=== PATIENT | female | born 1935 | race Caucasian/White ===

== ENCOUNTER 2019-12-12 15:54 | Inpatient (IN) | payer OTHER ==
[2019-12-12] MEDS ORDERED: NA CHLORIDE 0.9% 500 ML ONE (17:07)
[2019-12-12] MEDS ORDERED: NA CHLORIDE 0.9% 1,000 ML ONE (17:07)
[2019-12-12 17:29] LABS: Urine Bacteria LOADED /HPF (<20); Urine Culture Reflex Order REFLEXED; Urine RBC <5 /HPF (NONE SEEN)
[2019-12-12 17:46] LABS: Absolute Lymphocytes (CBC) 0.6 K/uL (0.7-4.9); Basophils % 0.9 % (0-1.3); Hematocrit 38.2 % (36.0-45.0); Lymphocytes % 2.6 % (15.3-44.8); MPV 9.5 fL (7.6-11.3); RBC Red Blood Cell Count 4.35 M/uL (3.86-4.86)
[2019-12-12 17:50] LABS: Protime INR 1.16
[2019-12-12] MEDS ORDERED: CEFTRIAXONE/SWI 1gm 1 GM/10 ML SYR ONE (17:57)
--- NOTE | 2019-12-12 17:58 | RAD REPORT ---
EXAM DESCRIPTION: CT - Head C Spine Mpr Wo Con - 12/12/2019 5:47 pm CLINICAL HISTORY: Head and neck injury status post fall. Head and neck pain COMPARISON: None. TECHNIQUE: Computed axial tomography of the head and cervical spine was obtained. Sagittal and coronal reconstruction was performed. All CT scans are performed using dose optimization technique as appropriate and may include automated exposure control or mA/KV adjustment according to patient size. FINDINGS: An intracranial bleed is not seen. The ventricles are normal in caliber. An extra-axial fl uid collection is not noted.Fluid within the visualized sinuses and mastoids is not seen Minimal anterior subluxation C3 on C4. No prevertebral soft tissue swelling. A cervical fracture is n ot visualized. No dislocation is noted. A 11 x 7 millimeter right upper opacity IMPRESSION: No acute intracranial abnormality is seen. A cervical fracture is not visualized. If the patient continues to have symptoms to suggest intracra nial /spinal cord pathology then MRI would be recommended 11 x 7 millimeter right upper opacity probably either chronic or inflammatory. Neoplasm considered le ss likely. Followup CT chest 3 months is recommended to assess stability
[2019-12-12 18:06] LABS: ALT/SGPT 7 U/L (12-78); AST/SGOT 26 U/L (15-37); Albumin 2.4 g/dL (3.4-5.0); Alkaline Phosphatase 130 U/L (45-117); BUN Blood Urea Nitrogen 70 mg/dL (7-18); Bicarbonate 23 mmol/L (21-32); Bilirubin Direct 0.5 mg/dL (0-0.2); Bilirubin Total 0.9 mg/dL (0.2-1.0); Creatine Phosphokinase 146 U/L (26-192); Glucose Level 110 mg/dL (74-106); Potassium 3.5 mmol/L (3.5-5.1); Protein, Total 7.4 g/dL (6.4-8.2); Sodium Level 138 mmol/L (136-145); Troponin (Emerg Dept Use Only) < 0.02 ng/mL (0.0-0.045)
--- NOTE | 2019-12-12 18:10 | RAD REPORT ---
EXAM DESCRIPTION: Nicole Single View12/12/2019 6:02 pm CLINICAL HISTORY: Chest pain COMPARISON: none FINDINGS: The lungs are hyperaerated. The lungs appear clear of acute infiltrate. The heart is normal size IMPRESSION: No acute abnormalities displayed
--- NOTE | 2019-12-12 18:17 | ER ---
Nurse's Notes [facility] Name: Georgiana Ortiz Age: 84 yrs Sex: Female : 1935 Arrival Date: 12/12/2019 Time: 15:57 Bed 16 Private MD: Diagnosis: Acute kidney failure;Urinary tract infection, site not specified;Other sepsis Presentation: 12/11 16:01 Chief complaint: Patient's son or daughter states: Daughter: I picked her up from [address] yesterday. She has Parkinson's and has been falling a lot. Last , she fell backwards and hit her head. I am just concern, she has been fed properly. She has diarrhea, doesn't eat much. Denies fever. Denies cough. Appears drowsy. Oriented x 2, daughter states, "has been this way for a while now. This is her normal but it just has gotten worse sine last ". Denies pain. Coronavirus screen: Client denies travel out of the [place] in the last 14 days. diarrhea, Client presents with at least one sign or symptom that may indicate coronavirus-19. Standard/surgical mask placed on the client. Provider contacted for isolation considerations. The client denies any previous COVID testing. Ebola Screen: Patient negative for fever greater than or equal to 101.5 degrees Fahrenheit, and additional compatible Ebola Virus Disease symptoms Patient denies exposure to infectious person. Patient denies travel to an Ebola-affected area in the 21 days before illness onset. No symptoms or risks identified at this time. Initial Sepsis Screen: Does the patient meet any 2 criteria? Altered Mental Status. HR > 90 bpm. Yes Does the patient have a suspected source of infection? Yes: Other: diarrhea. Risk Assessment: Do you want to hurt yourself or someone else? Patient reports no desire to harm self or others. Onset of symptoms was December 12, 2019. 16:01 Method Of Arrival: Wheelchair ca1 16:01 Acuity: LIBIA 2 ca1 Historical: - Allergies: 16:10 No Known Allergies; ca1 - Home Meds: 16:10 melatonin 3 mg Oral tab [Active]; mirtazapine 15 mg Oral tab 1 tab once daily [Active]; ca1 donepezil 10 mg oral tab 1 tab once daily [Active]; levothyroxine 25 mcg tab 1 tab once daily [Active]; carbidopa-levodopa 25-100 mg Oral tab 1 tab 4 times per day [Active]; - PMHx: 16:10 Parkinsons; Dementia; Alzheimers; Thyroid problem; ca1 - PSHx: 16:10 Hysterectomy; ca1 - Immunization history:: Adult Immunizations unknown. - Social history:: Smoking status: Patient/guardian denies using tobacco. Screenin:37 Abuse screen: Denies threats or abuse. Nutritional screening: No deficits noted. jd3 Tuberculosis screening: No symptoms or risk factors identified. Fall Risk Fall in past 12 months (25 points). IV access (20 points). Ambulatory Aid- None/Bed Rest/Nurse Assist (0 pts). Gait- Weak (10 pts.). Mental Status- Overestimates/Forgets Limitations (15 pts.). Total Sutton Fall Scale indicates High Risk Score (45 or more points). Fall prevention measures have been instituted. Side Rails Up X 2 Placed Close to Nursing Station Frequent Obs/Assessments Occuring Family Present and informed to notify staff if the need to leave the bedside. Assessment: 16:30 General: Appears uncomfortable, Behavior is calm, cooperative. Pain: Denies pain. jd3 Neuro: Level of Consciousness is awake, alert, confused, Oriented to person, Airfield Manager are equal bilaterally. Cardiovascular: Denies chest pain, Capillary refill < 3 seconds Patient's skin is warm and dry. Rhythm is sinus tachycardia. Respiratory: Airway is patent Respiratory effort is even, unlabored, Respiratory pattern is regular, symmetrical, Denies cough, shortness of breath. GI: No signs and/or symptoms were reported involving the gastrointestinal system. : Urine is cloudy. EENT: No signs and/or symptoms were reported regarding the EENT system. Derm: Skin is intact, Skin is dry, Skin is normal, Skin temperature is warm. Musculoskeletal: Circulation, motion, and sensation intact. Range of motion: intact in all extremities. 17:35 Reassessment: Patient appears in no apparent distress at this time. No changes from jd3 previously documented assessment. Patient and/or family updated on plan of care and expected duration. Pain level reassessed. 18:39 Reassessment: Patient appears in no apparent distress at this time. No changes from jd3 previously documented assessment. Patient and/or family updated on plan of care and expected duration. Pain level reassessed. awaiting admission. 19:43 Reassessment: Patient appears in no apparent distress at this time. No changes from ea previously documented assessment. Patient and/or family updated on plan of care and expected duration. Pain level reassessed. 20:18 Reassessment: Patient appears in no apparent distress at this time. No changes from jd3 previously documented assessment. Patient and/or family updated on plan of care and expected duration. Pain level reassessed. Vital Signs: 16:01 BP 123 / 58; Pulse 112; Resp 18 S; Temp 97.8(TE); Pulse Ox 97% on R/A; Weight 49.9 kg ca1 (R); Height 5 ft. 6 in. (167.64 cm) (R); Pain 0/10; 17:38 BP 127 / 60; Pulse 100; Resp 20; Pulse Ox 98% on R/A; mh5 18:38 BP 117 / 63; Pulse 99; Resp 17 S; Pulse Ox 100% on R/A; jd3 19:42 BP 108 / 95; Pulse 95; Resp 16 S; Pulse Ox 98% on R/A; ea 20:15 BP 95 / 76; Pulse 94; Resp 18; Pulse Ox 97% on R/A; ea 16:01 Body Mass Index 17.75 (49.90 kg, 167.64 cm) ca1 ED Course: 15:57 Patient arrived in ED. ag5 16:07 Triage completed. ca1 16:10 Arm band placed on right wrist. ca1 16:19 Filipe Raines PA is PHCP. cp 16:19 Filipe Tamez MD is Attending Physician. cp 16:31 Zak Manuel, ALLISON is Primary Nurse. jd3 17:25 Initial lab(s) drawn, by nj, sent to lab. First set of blood cultures drawn by nj, [facility] Second set of blood cultures drawn by nj, Urine collected: straight cath specimen, cloudy, EKG done, by ED staff, reviewed by Filipe Tamez MD. Inserted saline lock: 22 gauge in right antecubital area, using aseptic technique. Blood collected. 17:34 Urine Culture Sent. 5 17:34 Urine Dipstick--Ancillary (enter results) Sent. 5 17:34 Basic Metabolic Panel Sent. 5 17:34 Blood Culture Adult (2) Sent. mh5 17:34 CBC with Diff Sent. mh5 17:34 CPK Sent. mh5 17:34 Lactate Sent. mh5 17:34 LFT's Sent. mh5 17:34 Procalcitonin Sent. mh5 17:34 Protime (+inr) Sent. mh5 17:35 Ptt, Activated Sent. mh5 17:35 Troponin (emerg Dept Use Only) Sent. mh5 17:46 CT Head C Spine In Process Unspecified. EDMS 18:02 Chest Single View XRAY In Process Unspecified. EDMS 18:15 Keegan Wu MD is Hospitalizing Provider. cp 18:33 Tien Chan is Hospitalizing Provider. cp 18:38 Patient has correct armband on for positive identification. Placed in gown. Bed in low jd3 position. Call light in reach. Side rails up X2. Adult w/ patient. insulation batting machine operator on. Pulse ox on. NIBP on. 19:04 XRAY Hip RIGHT 2 view In Process Unspecified. EDMS 19:04 XRAY Pelvis In Process Unspecified. EDMS 19:09 US Rp Exam Complete In Process Unspecified. EDMS 19:37 Richey cath inserted, using sterile technique, 16 Fr., by nj, balloon inflated, to ll2 gravity drainage. 20:16 No provider procedures requiring assistance completed. Patient admitted, IV remains in jd3 place. Administered Medications: 18:03 Drug: Rocephin - (cefTRIAXone) 1 grams Route: IVPB; Infused Over: 30 mins; Site: right jd3 antecubital; 18:51 Follow up: Response: No adverse reaction; IV Status: Completed infusion jd3 18:07 Drug: NS 0.9% (30 ml/kg) 30 ml/kg Route: IV; Rate: bolus; Site: right antecubital; jd3 20:05 Follow up: Response: No adverse reaction; IV Status: Completed infusion; IV Intake: jd3 1490ml 19:10 Drug: Ativan 0.5 mg Route: IVP; Site: right antecubital; jd3 20:04 Follow up: Response: No adverse reaction jd3 Intake: 20:05 IV: 1490ml; Total: 1490ml. jd3 Outcome: 18:16 Decision to Hospitalize by Provider. cp 20:17 Admitted to Med/surg accompanied by tech, family with patient, via stretcher, room 201, jd3 with chart, Report called to Boris COOPER 20:17 Condition: stable 20:17 Instructed on the need for admit. 20:18 Patient left the ED. jd3 Signatures: Dispatcher [employer] EDMS Filipe Raines PA PA cp Martinez, Maria 5 Macrina Sweet, RN Zak Fields ea, RN RN jd3 Mackenzie Gee RN RN [facility] Howie See 5 Yina Banda RN RN ll2 Corrections: (The following items were deleted from the chart) 16:11 16:01 Chief complaint: Patient's son or daughter states: Daughter: I picked her up from [address] yesterday. She has Parkinson's and has been falling a lot. Last , she fell backwards and hit her head. I am just concern, she has been fed properly. She has diarrhea, doesn't eat much. Denies fever. Denies cough. Appears drowsy. Oriented x 2, daughter states, "has been this way for a while now". Denies pain. [facility] 16:19 16:01 Initial Sepsis Screen: Does the patient meet any 2 criteria? No. Patient's [facility] initial sepsis screen is negative. Does the patient have a suspected source of infection? No. Patient's initial sepsis screen is negative. ca1 16: 16:01 Acuity: LIBIA 3 [place] [id number]
--- NOTE | 2019-12-12 18:17 | EDPHYS ---
Physician Documentation [facility] Name: Georgiana Ortiz Age: 84 yrs Sex: Female : 1935 Arrival Date: 12/12/2019 Time: 15:57 Bed 16 Private MD: MONE Physician Filipe Tamez HPI: 12/11 16:40 This 84 yrs old Female presents to ER via Wheelchair with complaints of Altered Mental cp Status, Decreased Appetite, Weakness. 16:40 The patient presents with decreased mental status, general weakness. Onset: The cp symptoms/episode began/occurred 4 day(s) ago. Associated signs and symptoms: Pertinent positives: diarrhea, Pertinent negatives: abdominal pain, chest pain. 16:40 Patient's baseline: Neuro: orientated to person, Motor: no deficits, Ambulation: walks cp without assistance, Speech: normal, The patient has a previous history of Alzheimer's/Dementia. Historical: - Allergies: 16:10 No Known Allergies; ca1 - Home Meds: 16:10 melatonin 3 mg Oral tab [Active]; mirtazapine 15 mg Oral tab 1 tab once daily [Active]; ca1 donepezil 10 mg oral tab 1 tab once daily [Active]; levothyroxine 25 mcg tab 1 tab once daily [Active]; carbidopa-levodopa 25-100 mg Oral tab 1 tab 4 times per day [Active]; - PMHx: 16:10 Parkinsons; Dementia; Alzheimers; Thyroid problem; ca1 - PSHx: 16:10 Hysterectomy; ca1 - Immunization history:: Adult Immunizations unknown. - Social history:: Smoking status: Patient/guardian denies using tobacco. ROS: 16:45 Constitutional: Negative for body aches, chills, fever, poor PO intake. cp 16:45 Eyes: Negative for injury, pain, redness, and discharge. cp 16:45 ENT: Negative for drainage from ear(s), ear pain, sore throat, difficulty swallowing, difficulty handling secretions. 16:45 Cardiovascular: Negative for chest pain, edema, palpitations. 16:45 Respiratory: Negative for cough, shortness of breath, wheezing. 16:45 Abdomen/GI: Negative for abdominal pain, nausea, vomiting, and diarrhea. 16:45 Back: Negative for pain at rest, pain with movement. Exam: 16:50 Constitutional: The patient appears in no acute distress, alert, awake, cp non-diaphoretic, non-toxic, well developed, well nourished. 16:50 Head/Face: Normocephalic, atraumatic. cp 16:50 Eyes: Periorbital structures: appear normal, Pupils: equal, round, and reactive to light and accomodation, Extraocular movements: intact throughout, Conjunctiva: normal, no exudate, no injection, Sclera: no appreciated abnormality, Lids and lashes: appear normal, bilaterally. 16:50 ENT: External ear(s): are unremarkable, Nose: is normal, Mouth: Lips: dry, Oral mucosa: dry, Posterior pharynx: Airway: no evidence of obstruction, patent. 16:50 Neck: ROM/movement: is normal, is supple, without pain, no range of motions limitations, no meningismus. 16:50 Chest/axilla: Inspection: normal, Palpation: is normal, no crepitus, no tenderness. 16:50 Cardiovascular: Rate: tachycardic, Rhythm: regular, Edema: is not appreciated, JVD: is not appreciated. 16:50 Respiratory: the patient does not display signs of respiratory distress, Respirations: normal, no use of accessory muscles, labored breathing, is not present, intercostal retractions, are absent, Breath sounds: are clear throughout, no decreased breath sounds, no stridor, no wheezing. 16:50 Abdomen/GI: Inspection: abdomen appears normal, Bowel sounds: active, all quadrants, Palpation: abdomen is soft and non-tender, in all quadrants. 16:50 Back: pain, is absent, ROM is normal. 16:50 Musculoskeletal/extremity: Joints: All joints are normal except the right hip displays pain at rest, painful range of motion, tenderness. 16:50 Skin: no rash present. 16:50 Neuro: Orientation: to person, Mentation: able to follow commands, slow to respond, Motor: moves all fours, general weakness with no focal deficits. 16:56 ECG was reviewed by the Attending Physician. cp Vital Signs: 16:01 BP 123 / 58; Pulse 112; Resp 18 S; Temp 97.8(TE); Pulse Ox 97% on R/A; Weight 49.9 kg ca1 (R); Height 5 ft. 6 in. (167.64 cm) (R); Pain 0/10; 17:38 BP 127 / 60; Pulse 100; Resp 20; Pulse Ox 98% on R/A; mh5 18:38 BP 117 / 63; Pulse 99; Resp 17 S; Pulse Ox 100% on R/A; jd3 19:42 BP 108 / 95; Pulse 95; Resp 16 S; Pulse Ox 98% on R/A; ea 20:15 BP 95 / 76; Pulse 94; Resp 18; Pulse Ox 97% on R/A; ea 16:01 Body Mass Index 17.75 (49.90 kg, 167.64 cm) ca1 MDM: 16:23 Patient medically screened. beny 18:13 Physician consultation: Julius DESHPANDE was contacted at 18:13, regarding admission, to the telemetry unit. patient's condition. 18:34 Data reviewed: vital signs, nurses notes, lab test result(s), radiologic studies, CT cp scan, plain films. Data interpreted: Pulse oximetry: on room air is 98 %. Interpretation: normal. Counseling: I had a detailed discussion with the patient and/or guardian regarding: the historical points, exam findings, and any diagnostic results supporting the discharge/admit diagnosis, lab results, radiology results, the need for further work-up and treatment in the hospital. 12/11 16:37 Order name: Urine Microscopic Only; Complete Time: 17:35 12/11 17:36 Interpretation: Normal except: UWBC TNTC; UBACT LOADED. 12/11 16:37 Order name: Urine Culture 12/11 16:37 Order name: Basic Metabolic Panel 12/11 18:08 Interpretation: Normal except: GLUC 110; BUN 70; CRE 3.22; GFR 14; CA 8.2. 12/11 16:37 Order name: Blood Culture Adult (2) 12/11 16:37 Order name: CBC with Diff; Complete Time: 18:59 12/11 18:00 Interpretation: Normal except: WBC 23.4; SE% 91.0; LYM% 2.6; NEUT A 21.3; LYMA 0.6. 12/11 16:37 Order name: CPK 12/11 16:37 Order name: Lactate; Complete Time: 17:54 12/11 17:54 Interpretation: Reviewed. 12/11 16:37 Order name: LFT's 12/11 18:14 Interpretation: Normal except: ALT 7; ALK 130; BILID 0.5; ALB 2.4; GLOB 5.0; A/G 0.5. 12/11 16:37 Order name: Procalcitonin; Complete Time: 18:33 12/11 16:37 Order name: Protime (+inr); Complete Time: 18:00 12/11 16:37 Order name: Ptt, Activated; Complete Time: 18:00 12/11 16:37 Order name: Troponin (emerg Dept Use Only) 12/11 16:52 Order name: Urine Dipstick--Ancillary (enter results) 12/11 16:35 Order name: CT Head C Spine; Complete Time: 18:07 12/11 16:37 Order name: Chest Single View XRAY; Complete Time: 18:14 12/11 18:01 Order name: XRAY Hip RIGHT 2 view; Complete Time: 20:03 12/11 18:01 Order name: XRAY Pelvis; Complete Time: 20:03 12/11 18:41 Order name: US Rp Exam Complete; Complete Time: 20:03 [facility] 12/11 18:46 Order name: Manual Differential; Complete Time: 18:59 [facility] 12/11 18:46 Order name: Uric Acid [facility] 12/11 18:46 Order name: Pth,Intact [facility] 12/11 18:46 Order name: Urine For Protein, Random [facility] 12/11 19:37 Order name: CONS Physician Consult [facility] 12/11 20:09 Order name: SARS-COV-2 RT PCR [facility] 12/11 16:37 Order name: Cath; Complete Time: 16:52 12/11 16:37 Order name: Urine Dipstick-Ancillary (obtain specimen); Complete Time: 16:52 12/11 16:37 Order name: Accucheck; Complete Time: 16:51 12/11 16:37 Order name: Cardiac monitoring; Complete Time: 16:52 12/11 16:37 Order name: EKG - Nurse/Tech; Complete Time: 16:52 12/11 16:37 Order name: IV Saline Lock - Large Bore; Complete Time: 17:16 12/11 16:37 Order name: Labs collected and sent; Complete Time: 17:16 12/11 16:37 Order name: O2 Per Protocol; Complete Time: 16:52 cp 12/11 16:37 Order name: O2 Sat Monitoring; Complete Time: 16:52 cp 12/11 16:37 Order name: Urine Dipstick-Ancillary (obtain specimen); Complete Time: 17:16 cp 12/11 18:44 Order name: Richey; Complete Time: 19:43 cp EC:56 Rate is 106 beats/min. Rhythm is regular. MA interval is normal. QRS interval is cp normal. QT interval is normal. T waves are Inverted in lead aVR. Interpreted by me. Reviewed by me. Administered Medications: 18:03 Drug: Rocephin - (cefTRIAXone) 1 grams Route: IVPB; Infused Over: 30 mins; Site: right jd3 antecubital; 18:51 Follow up: Response: No adverse reaction; IV Status: Completed infusion jd3 18:07 Drug: NS 0.9% (30 ml/kg) 30 ml/kg Route: IV; Rate: bolus; Site: right antecubital; jd3 20:05 Follow up: Response: No adverse reaction; IV Status: Completed infusion; IV Intake: jd3 1490ml 19:10 Drug: Ativan 0.5 mg Route: IVP; Site: right antecubital; jd3 20:04 Follow up: Response: No adverse reaction jd3 Disposition: 12/12 10:48 Co-signature as Attending Physician, Filipe Tamez MD I agree with the assessment and beny plan of care. Disposition: 12/12/19 18:16 Hospitalization ordered by Tien Chan for Inpatient Admission. Preliminary diagnosis are Acute kidney failure, Urinary tract infection, site not specified, Other sepsis. - Bed requested for Telemetry/MedSurg (Inpatient). - Status is Inpatient Admission. jd3 - Condition is Fair. - Problem is new. - Symptoms have improved. Signatures: Dispatcher [employer] Filipe Sutton MD MD cha Roszak, Josh, PA PA jr8 Lasagna, Tonya RN RN tl1 Filipe Raines PA PA cp Davies, Jonathon, RN RN jd3 Mackenzie Gee RN RN ca1 Corrections: (The following items were deleted from the chart) 12/11 18:00 18:00 Normal except: WBC 23.4; SE% 91.0; LYM% 2.6. cp cp 18:00 18:00 Normal except: WBC 23.4; SE% 91.0; LYM% 2.6; NEUT A 21.3. cp cp 18:08 18:07 Normal except: GLUC 110; BUN 70; CRE 3.22; GFR 14. cp cp 18:33 18:16 Hospitalization Ordered by Keegan Wu MD for Inpatient Admission. Preliminary cp diagnosis is Acute kidney failure; Urinary tract infection, site not specified; Other sepsis. Bed requested for Telemetry/MedSurg (Inpatient). Status is Inpatient Admission. Condition is Fair. Problem is new. Symptoms have improved. cp 18:42 16:38 CORONAVIRUS+MR.LAB.BRZ ordered. EDWY EDMS 19:48 18:33 12/12/2019 18:16 Hospitalization Ordered by Tien Chan for Inpatient tl1 Admission. Preliminary diagnosis is Acute kidney failure; Urinary tract infection, site not specified; Other sepsis. Bed requested for Telemetry/MedSurg (Inpatient). Status is Inpatient Admission. Condition is Fair. Problem is new. Symptoms have improved. cp 20:00 19:57 T4 Free ordered. EDWY EDMS 20:00 19:57 Thyroid Stimulating Hormone ordered. EDWY EDMS 20:18 19:48 12/12/2019 18:16 Hospitalization Ordered by Tien Chan for Inpatient jd3 Admission. Preliminary diagnosis is Acute kidney failure; Urinary tract infection, site not specified; Other sepsis. Bed requested for Telemetry/MedSurg (Inpatient). Status is Inpatient Admission. Condition is Fair. Problem is new. Symptoms have improved. tl1
[2019-12-12 18:46] LABS: Blood Morphology Comment NOT SEEN (NOT SEEN); Platelet Estimate ADEQ
[2019-12-12] MEDS ORDERED: LORazepam 2 MG/ML VIAL ONE (19:09)
--- NOTE | 2019-12-12 19:18 | RAD REPORT ---
EXAM DESCRIPTION: RAD - Pelvis - 12/12/2019 7:04 pm CLINICAL HISTORY: Pelvic pain status post injury FINDINGS: No fracture or dislocation is seen. Bones are osteoporotic If the patient continues to have symptoms to suggest an occult fracture then MRI would be recommended
--- NOTE | 2019-12-12 19:19 | RAD REPORT ---
EXAM DESCRIPTION: RAD - Hip Right 2 View - 12/12/2019 7:04 pm CLINICAL HISTORY: Right hip pain FINDINGS: No fracture or dislocation is seen. The bones are osteoporotic. If the patient continues to have symptoms to suggest occult fracture MR I would be recommended
--- NOTE | 2019-12-12 19:20 | RAD REPORT ---
EXAM DESCRIPTION: US - Renal Ultrasound-Complete - 12/12/2019 7:08 pm CLINICAL HISTORY: Acute renal insufficiency COMPARISON: None. FINDINGS: The right kidney measures 10 cm with an increased echotexture. The left kidney measures 11 cm with an increased echotexture. Hydronephrosis is not seen. No gross abnormality of bladder is seen IMPRESSION: Increased renal echotexture consistent with parenchymal disease
[2019-12-12 20:26] LABS: Urine Blood 2+ (NEG); Urine Glucose NEGATIVE (NEG); Urine Protein 2+ (NEG); Urine pH 5.5 (5.0-7.0)
--- NOTE | 2019-12-12 20:33 | P.HP ---
Certification for Inpatient Patient admitted to: Inpatient With expected LOS: >2 Midnights Patient will require the following post-hospital care: None Practitioner: I am a practitioner with admitting privileges, knowledge of patient current condition, hospital course, and medical plan of care. Services: Services provided to patient in accordance with Admission requirements found in Title 42 Section 412.3 of the Code of Federal Regulations <Nikolay Wooten - Last Filed: 12/12/19 20:27> Patient History Date of Service: 12/12/19 Primary Care Provider: MAGDALENO Reason for admission: Urosepsis, Acute Kidney Failure History of Present Illness: This is a 84-year-old female that was brought in by family to the emergency room for 4 days of progressive weakness and decreasing mental status. Family stated that she was just received to them from [place] after being up there for some time with family but was not receiving proper care. Patient upon initial emergency room presentation had an elevated heart rate but with normal temperature. Patient was worked up for sepsis and was found to have urinary tract infection and acute kidney failure. To family's knowledge patient does not have any intrinsic renal insufficiency that they know of, although she has not seen the primary care physician in a long time. Patient with a history of dementia and has baseline altered mentation but is perceived to be worse by family currently. Patient also with Parkinson history and hypothyroidism. Patient currently without specific complaints. Patient currently alert an oriented only to person and place at this time. Patient upon admission hemodynamically stable. Home medications list reviewed: Yes - Past Medical/Surgical History Diabetic: No - Family History Family History: Reviewed- Non-Contributory - Social History Smoking Status: Never smoker Smoking therapy provided: No Alcohol use: No CD- Drugs: No Caffeine use: No Place of Residence: Home <Nikolay Wooten - Last Filed: 12/12/19 20:27> Date of Service: 12/13/19 - Family History Sister -: Lung disease, Cancer Notes: lung CA <sussy burgos - Last Filed: 12/13/19 07:30> Allergies No Known Allergies Allergy (Verified 12/13/19 02:31) Home Medications: Carbidopa/Levodopa [Carbidopa-Levo 25-100 mg Odt] 1.5 tab PO SEECOM 12/13/19 Carbidopa/Levodopa [Carbidopa-Levo 25-100 mg Odt] 2 tab PO SEECOM 12/13/19 Donepezil HCl 1 tab PO BEDTIME 12/13/19 Levothyroxine Sodium 1 tab PO DAILY 12/13/19 Memantine HCl [Namenda*] 1 tab PO BID 12/13/19 Mirtazapine [Remeron*] 1 tab PO BEDTIME 12/13/19 Review of Systems (Incomplete assessment secondary to altered mentation) General: Weakness, Malaise Neurological: Confusion <Nikolay Wooten - Last Filed: 12/12/19 20:27> Physical Examination - Vital Signs Temperature: 97.8 F Blood Pressure: 123/58 Pulse: 112 Respirations: 18 Pulse Ox (%): 97 - Physical Exam General: Alert, Oriented x2 HEENT: Normocephalic, PERRLA, Mucous membr. moist/pink, EOMI Neck: Supple, JVD not distended, No Thyromegaly Respiratory: Clear to auscultation bilaterally, Normal air movement Cardiovascular: No edema, Normal pulses, Regular rate/rhythm, Normal S1 S2, No gallops, No rubs, No murmurs Capillary refill: <2 Seconds Gastrointestinal: Normal bowel sounds, Soft and benign, Non-distended, No ascites, No tenderness, No masses, No rebound, No guarding Musculoskeletal: No clubbing, No swelling, No contractures, No erythema, No tenderness, No warmth Integumentary: No rashes, No breakdown, No significant lesion, No tenderness/swelling, No erythema, No warmth, No cyanosis Neurological: Normal speech, Normal strength at 5/5 x4 extr, Normal tone, Sensation intact, Cranial nerves 3-12 intact, Normal affect, Dementia Lymphatics: No axilla or inguinal lymphadenopathy Urinary: Richey catheter - Studies Laboratory Data (last 24 hrs) 12/12/19 17:25: PT 13.7 H, INR 1.16, APTT 25.8 12/12/19 17:25: WBC 23.4 H*, Hgb 12.7, Hct 38.2, Plt Count 271 12/12/19 17:25: Sodium 138, Potassium 3.5, BUN 70 H, Creatinine 3.22 H, Glucose 110 H, Total Bilirubin 0.9, AST 26, ALT 7 L, Alkaline Phosphatase 130 H <Nikolay Wooten - Last Filed: 12/12/19 20:27> - Studies Laboratory Data (last 24 hrs) 12/12/19 18:46: Uric Acid Cancelled 12/12/19 17:25: PT 13.7 H, INR 1.16, APTT 25.8 12/12/19 17:25: WBC 23.4 H*, Hgb 12.7, Hct 38.2, Plt Count 271 12/12/19 17:25: Sodium 138, Potassium 3.5, BUN 70 H, Creatinine 3.22 H, Glucose 110 H, Uric Acid 10.0 H, Total Bilirubin 0.9, AST 26, ALT 7 L, Alkaline Phosphatase 130 H <chellesussy robbins - Last Filed: 12/13/19 07:30> Assessment and Plan - Problems (Diagnosis) (1) Urinary tract infection Current Visit: Yes Status: Acute Plan: Patient is started on Rocephin will be given that q.12 hr for infection. Blood cultures and urine culture is obtained and pending results for sensitivity specificity. Qualifiers: Urinary tract infection type: acute cystitis Hematuria presence: without hematuria Qualified Code(s): N30.00 - Acute cystitis without hematuria (2) Acute kidney failure Current Visit: Yes Status: Acute Plan: Patient was given 30 mL/kg bolus of normal saline down in the emergency room and will continue on normal saline at 100 per hr. Renal pelvic ultrasound was ordered showing some intrinsic disease process but has a BUN/Creatinine ratio greater than 20:1 which is suggestive of acute on chronic process. Nephrology was consulted and other renal labs were obtained to further delineate process. Patient will have creatinine, GFR, BUN repeated in the morning and trended for i mprovement. Qualifiers: Acute renal failure type: unspecified Qualified Code(s): N17.9 - Acute kidney failure, unspecified (3) Severe sepsis Current Visit: Yes Status: Acute Plan: Although lactate was negative patient does have a markedly elevated white cell count and elevated pro calcitonin with tachycardia on initial presentation suggestive of severe sepsis along with dysfunction of renal system. Patient will be on antibiotics and fluids. Patient will be monitored for any decompensation secondary to the severe sepsis. Patient will continue her antibiotics and fluids throughout the next couple days. Labs in the mental status will be monitored. If patient decompensate patient will be moved to intensive care unit, but at this time did not foresee that happening. Strict I&Os along with neurologic status will be monitored. (4) Altered mental status Current Visit: Yes Status: Acute Plan: Patient with baseline Parkinson's dementia but has acute decompensation secondary to severe sepsis. Patient's altered mental status will be monitored throughout course. Qualifiers: Altered mental status type: transient alteration of awareness Qualified Code(s): R40.4 - Transient alteration of awareness (5) Dementia Current Visit: Yes Status: Chronic Qualifiers: Dementia type: Parkinson's disease (6) Hypothyroid Current Visit: Yes Status: Chronic Plan: We will recheck power labs to ensure that there is no acute component contributing to patient's altered mental status. If need be will adjust her levothyroxine. Qualifiers: Hypothyroidism type: unspecified Qualified Code(s): E03.9 - Hypothyroidism, unspecified (7) Parkinson disease Current Visit: Yes Status: Chronic Plan: Patient will continue on home medication for Parkinson's disease and will be monitored for any decompensation. Discharge Plan: Home Plan to discharge in: Greater than 2 days - Advance Directives Does patient have a Living Will: No Does patient have a Durable POA for Healthcare: No Critical Care: No Time Spent Managing Pts Care (In Minutes): 45 <Nikolay Wooten - Last Filed: 12/12/19 20:27> Physician Review: Patient Assessed, Agree with Above Assessment and Plan Physician Review Additional Text: Sepsis UTI Dementia. SHILOH Plan: IV hydration IV Rocephin Follow cultures PT eval. Renal consult. SW consult <sussy burgos - Last Filed: 12/13/19 07:30>
[2019-12-12] MEDS ORDERED: ONDANSETRON 4 MG/2 ML VIAL IV PRN (20:47)
[2019-12-12] MEDS ORDERED: NA CHLORIDE 0.9% 1,000 ML IV SCH (20:47)
[2019-12-12] MEDS ORDERED: NA CHLORIDE 0.9% 500 ML IV PRN (20:47)
[2019-12-12] MEDS ORDERED: LORazepam 2 MG/ML VIAL IV PRN (20:47)
--- NOTE | 2019-12-12 21:03 | P.INFCA ---
Sepsis Focused Assessment - Focused Assessment Complete? Sepsis Focused Assessment Completed?: Yes - Sepsis Screen Result Severe Sepsis: Positive - Evaluation Current stage of sepsis: Severe sepsis - Vital Signs Reviewed: Yes Temperature: 97.8 F Heart rate: 112 Blood Pressure: 123/58 Respiratory Rate: 18 O2 Sat by Pulse Oximetry: 97 - Examination Date exam was performed: 12/12/19 Time exam was performed: 21:02 Heart: Regular rate/rhythm Lungs: Clear bilaterally Peripheral pulses: 2+ Slightly diminished Peripheral pulse location: Radial Capillary refill: <2 Seconds Skin examination: Normal turgor (Patient's vital signs have improved since the initial assessment was taken.)
[2019-12-12 23:17] VITALS: BMI 17.7
[2019-12-13] MEDS: D5 0.9 NS 1,000 ML IV SCH ×2 (00:42→10:40)
[2019-12-13] MEDS: CEFTRIAXONE/SWI 1gm 1 GM/10 ML SYR IV SCH ×2 (03:30→17:03)
[2019-12-13] MEDS ORDERED: CEFTRIAXONE 1 GM/NS 50 ML 1 GM/50 ML BAG IV SCH (04:00)
[2019-12-13 04:30] LABS: Absolute Lymphocytes (CBC) 0.7 K/uL (0.7-4.9); Basophils % 0.1 % (0-1.3); Lymphocytes % 2.9 % (15.3-44.8); MPV 9.6 fL (7.6-11.3); RBC Red Blood Cell Count 3.75 M/uL (3.86-4.86)
[2019-12-13 05:13] LABS: Potassium 3.7 mmol/L (3.5-5.1)
[2019-12-13 05:14] LABS: Thyroid Stimulating Hormone 5.64 uIU/mL (0.360-3.740)
[2019-12-13] MEDS: LEVOTHYROXINE SOD 0.025 MG TAB PO SCH (07:30)
[2019-12-13] MEDS: MEMANTINE HCL 10 MG TABLET PO SCH ×2 (09:00→21:05)
--- NOTE | 2019-12-13 10:00 | P.PN ---
Subjective Date of Service: 12/13/19 Primary Care Provider: MAGDALENO Chief Complaint: Urosepsis, Acute Kidney Failure Patient is somnolent and could not provide any subjective complain. Daughter states she was intermittently agitated last night. She has been afebrile. Urine output is good. Physical Examination - Vital Signs Temperature: 98.1 F Blood Pressure: 113/57 Pulse: 93 Respirations: 20 Pulse Ox (%): 98 - Physical Exam General: Cachectic, Confused HEENT: PERRLA, Mucous membr. moist/pink Neck: Supple, JVD not distended Respiratory: Clear to auscultation bilaterally, Normal air movement Cardiovascular: No edema, Regular rate/rhythm, Normal S1 S2 Gastrointestinal: Normal bowel sounds, Soft and benign, Non-distended, No tenderness Musculoskeletal: No swelling, No contractures Integumentary: No tenderness/swelling Neurological: Other (Somnolent, moves all extremities spontaneously.), Dementia - Studies Laboratory Data (last 24 hrs) 12/12/19 18:46: Uric Acid Cancelled 12/12/19 17:25: PT 13.7 H, INR 1.16, APTT 25.8 12/12/19 17:25: WBC 23.4 H*, Hgb 12.7, Hct 38.2, Plt Count 271 12/12/19 17:25: Sodium 138, Potassium 3.5, BUN 70 H, Creatinine 3.22 H, Glucose 110 H, Uric Acid 10.0 H, Total Bilirubin 0.9, AST 26, ALT 7 L, Alkaline Phosphatase 130 H Assessment And Plan - Current Problems (Diagnosis) (1) Metabolic encephalopathy Current Visit: Yes Status: Acute (2) Acute kidney failure Current Visit: Yes Status: Acute Qualifiers: Acute renal failure type: unspecified Qualified Code(s): N17.9 - Acute kidney failure, unspecified (3) Severe sepsis Current Visit: Yes Status: Acute (4) Urinary tract infection Current Visit: Yes Status: Acute Qualifiers: Urinary tract infection type: acute cystitis Hematuria presence: without hematuria Qualified Code(s): N30.00 - Acute cystitis without hematuria (5) Hypothyroid Current Visit: Yes Status: Chronic Qualifiers: Hypothyroidism type: unspecified Qualified Code(s): E03.9 - Hypothyroidism, unspecified (6) Parkinson disease Current Visit: Yes Status: Chronic - Plan Continue IV hydration with normal saline. Continue IV Rocephin. Follow urine culture and blood cultures Maintain Richey catheter Haldol p.r.n. for agitation Check bedside swallow Continue dementia medications. Resume Sinemet for Parkinson's disease. Consult to director social for discharge planning.
[2019-12-13] MEDS ORDERED: NA CHLORIDE 0.9% 1,000 ML IV ONE (10:56)
[2019-12-13] MEDS ORDERED: CARBIDOPA/LEVODOPA 25/100 TAB PO SCH ×2 (11:30→14:00)
[2019-12-13] MEDS: D5 0.45 NS 1,000 ML IV SCH ×2 (11:33→21:00)
[2019-12-13] MEDS ORDERED: POTASSIUM CL SA 10 MEQ TAB PO ONE (11:41)
[2019-12-13 12:06] LABS: Urine Protein/Creatinine Ratio 0.88 ratio (<0.15)
--- NOTE | 2019-12-13 12:25 | CON ---
Date of Consultation: 12/13/2019 Reason For Consultation: Elevated BUN and creatinine, fluid management. History Of Present Illness: This is an 84-year-old female with significant past medical history of P arkinson disease, hypothyroidism, the [place] state, brought to her family locally. According to the family, the patient was not receiving appropriate care and she has decreased intak e in the last few days. No nausea. No vomiting. For that reason was brought to the hospital. Upon arrival to the hospital, found to have elevation in BUN and creatinine with urosepsis, marginal low blood pressure. For that reason, we have been consulted. Over the night, we started the patient on IV fluid. Creatinine upon arrival was 3.2, currently down to 2.8. The patient had good urine output of 900. The patient denied taking any nonsteroidal, no IV contrast. The patient is complaining of some abdominal pain. Past Medical History: Includes, 1.Parkinson disease. 2.Hypothyroidism. 3.No known any history of kidney disease. Family History: Positive for hypertension. Social History: Lives with family. Denies smoking. Denies drinking. Denies drugs abuse. Recently moved to the area. Allergies: NO KNOWN DRUGS ALLERGY. Home Medications: Include, 1.Carbidopa levodopa. 2. . 3.Levothyroxine. 4.Namenda. 5.Mirtazapine. Review of Systems: Head and Neck: No red eye. No ear pain. GI: Has abdominal pain, decreased intake. : Has dysuria. EXTENSION SERVICE SUPERVISOR: No vaginal discharge. Respiratory: No shortness of breath. Cardiovascular: No chest pain. Endocrine: No polydipsia. Skin: No rash. Neuro: No neuropathy. Has fatigue. Musculoskeletal: Generalized fatigue. No joint pain. Physical Examination: General: When I saw the patient, patient is lying in bed. Vital Signs: Blood pressure 113/57, pulse of 93, afebrile. The patient had good urine output of 925 . Chest: Clear to auscultation. Heart: S1, S2. Regular. Systolic murmur. Abdomen: Soft, tender. No guarding or rebound. Extremities: No edema. Neuro: Alert. No focality. Skin: No ulcer. Has dry mucosa. Laboratory Data: Sodium 144, potassium 3.7, bicarb 19, chloride 113, BUN 65, creatinine 2.8, GFR of 16, calcium 7.8. PTH of 77. Albumin is 2.4. Uric acid is 10. Urinalysis, wbc's, too numerous to c ount. Blood culture still pending. TSH 5.6. Current Medications: The patient on include, 1.Ceftriaxone. 2. . 3.Carbidopa. 4.Namenda. 5.Levothyroxine. 6.D5 normal at 100. Assessment And Plan: Acute kidney injury secondary to toxic acute tubular necrosis/poor perfusion ac karen tubular necrosis secondary to dehydration. Complicated with acidosis nonanion gap with no hyperk alemia. No overt volume. Nonoliguric. obstructive uropathy has been ruled out as ultrasound came n o hydro, normal size kidney 12/01, proteinuric, still pending PC ratio. 1.I am going to go ahead and continue IV hydration. We will give the patient 1 L of normal saline b olus and then we will monitor the patient. I am going to go ahead and change IV fluid to D5 half to avoid any hypertonic saline and we will continue to monitor. 2.Acidosis, nonanion gap metabolic acidosis secondary to IV fluid. I am going to change IV fluid to D5 half and we will monitor. 3.Hypokalemia. Given the degree of kidney function, I am going to replace cautiously. 4.Urinary tract infection with urosepsis. Given the severe elevation in the local side, I am going to go ahead and get CT of abdomen noncontrast to evaluate if there is any other etiology in the abdom en. Currently, patient is on ceftriaxone. We will continue current antibiotic. 5.Altered mental status secondary to metabolic secondary to urosepsis. Thank you, Dr. Tien Chan for allowing us to participate in the care of your patient. HUSSEIN Voice ID: [id number] Report ID: [id number]
--- NOTE | 2019-12-13 12:52 | RAD REPORT ---
EXAM DESCRIPTION: CT - CT CHEST,ABD,PELVIS W/O - 12/13/2019 12:29 pm CLINICAL HISTORY: Chest and abdomen pain. Urosepsis COMPARISON: No comparisons TECHNIQUE: A limited noncontrast study is performed. All CT scans are performed using dose optimization technique as appropriate and may include automated exposure control or mA/KV adjustment according to patient size. FINDINGS: The lungs are mildly emphysematous with mild atelectasis in both lung bases. Small area of ground-glass opacity is seen in the right apex medially and left lower lobe, nonspecific.Trace pleur al fluid bilaterally. No pericardial fluid.No intrathoracic adenopathy. The liver, spleen, pancreas, adrenal glands and kidneys are within normal limits. No hydronephrosis o r renal calculus identified. Richey catheter is present in the urinary bladder, decompressing at. No bowel obstruction, free air, free fluid or abscess. The appendix is not identified as a discrete s tructure, however, no secondary findings of appendicitis are identified. Aortoiliac atherosclerosis. No pathologic lymphadenopathy in the abdomen or pelvis. Moderate upper lumbar degenerative changes. IMPRESSION: No acute findings seen on limited noncontrast study.
--- NOTE | 2019-12-13 13:53 | RAD REPORT ---
EXAM DESCRIPTION: RAD - Barium Swallow Modified - 12/13/2019 1:49 pm CLINICAL HISTORY: impaired swalllow Dysphagia COMPARISON: Renal Ultrasound-Complete dated 12/12/2019 TECHNIQUE: The patient was given liquid, semi-solid and solid forms of barium. Lateral view fluorosc opic imaging was performed in conjunction with speech pathology service. FINDINGS: Laryngeal penetration not cleared with thin. Aspiration no cough with thin, nectar, honey and puree. Mild vallecular residue, moderate pyriform and mild posterior wall. Two to three second s wallow delay. Delayed laryngeal elevation. Decreased hyolaryngeal protraction. Silent aspiration. Total fluoroscopy time: 3 minutes and 18 seconds
[2019-12-13] MEDS: CARBIDOPA/LEVODOPA 25/100 TAB PO SCH ×3 (16:00→21:05)
[2019-12-13] MEDS: ENOXAPARIN 30 MG/0.3 ML SQ SCH (17:04)
--- NOTE | 2019-12-13 17:45 | RAD REPORT ---
EXAM DESCRIPTION: RAD - Abdomen 1 View (KUB) - 12/13/2019 5:35 pm CLINICAL HISTORY: n/g placement verification. Pain COMPARISON: Barium Swallow Modified dated 12/13/2019 FINDINGS: Enteric tube tip appears at the level of the gastroesophageal junction.
[2019-12-13] MEDS: ACETAMINOPHEN 500 MG TAB PO PRN (21:05)
[2019-12-13] MEDS: DONEPEZIL HCL 5 MG TAB PO SCH (21:05)
[2019-12-14] MEDS: CEFTRIAXONE/SWI 1gm 1 GM/10 ML SYR IV SCH ×2 (03:14→16:59)
[2019-12-14] MEDS: D5 0.45 NS 1,000 ML IV SCH ×2 (03:14→10:56)
[2019-12-14] MEDS: CARBIDOPA/LEVODOPA 25/100 TAB PO SCH ×4 (05:40→18:49)
[2019-12-14] MEDS: ACETAMINOPHEN 500 MG TAB PO PRN (05:59)
[2019-12-14 06:28] LABS: Basophils % 0.2 % (0-1.3); Hematocrit 34.9 % (36.0-45.0); Lymphocytes % 5.9 % (15.3-44.8); RBC Red Blood Cell Count 3.99 M/uL (3.86-4.86)
[2019-12-14 07:34] LABS: Albumin 1.8 g/dL (3.4-5.0); BUN Blood Urea Nitrogen 45 mg/dL (7-18); Bicarbonate 22 mmol/L (21-32); Ferritin 283.9 ng/mL (8-388); Glucose Level 108 mg/dL (74-106); Magnesium 2.2 mg/dL (1.8-2.4); Phosphorus 2.9 mg/dL (2.5-4.9); Potassium 3.3 mmol/L (3.5-5.1); Sodium Level 149 mmol/L (136-145); Transferrin 90 mg/dL (200-360)
[2019-12-14] MEDS: MEMANTINE HCL 10 MG TABLET PO SCH ×2 (09:08→22:13)
[2019-12-14] MEDS: LEVOTHYROXINE SOD 0.025 MG TAB PO SCH (09:10)
[2019-12-14] MEDS: ENSURE ENLIVE 237 ML CAN PO PRN ×2 (09:14→22:14)
--- NOTE | 2019-12-14 10:57 | P.PN ---
Subjective Date of Service: 12/14/19 Primary Care Provider: MAGDALENO Chief Complaint: Urosepsis, Acute Kidney Failure Patient is more interactive today. She states she feels better. NG tube is in place for medications and feeding. Blood culture growing Gram negative rods. Urine culture: Pansensitive E. coli She has been afebrile. Physical Examination - Vital Signs Temperature: 97.7 F Blood Pressure: 111/58 Pulse: 88 Respirations: 19 Pulse Ox (%): 97 - Physical Exam General: In no apparent distress, Other (Awake and interactive.) HEENT: Other (NGT) Neck: Supple, JVD not distended Respiratory: Clear to auscultation bilaterally, Normal air movement Cardiovascular: No edema, Regular rate/rhythm, Normal S1 S2 Gastrointestinal: Normal bowel sounds, Soft and benign, No tenderness Musculoskeletal: No swelling, No erythema Integumentary: No rashes Neurological: Other (Nonfocal.) - Studies Microbiology Data (last 24 hrs): 12/12/19 16:50 Catheterized Urine [place] Count - Final >100,000 CFU/ML. 12/12/19 16:50 Catheterized Urine - Final Escherichia Coli Assessment And Plan - Current Problems (Diagnosis) (1) Metabolic encephalopathy Current Visit: Yes Status: Acute (2) Acute kidney failure Current Visit: Yes Status: Acute Qualifiers: Acute renal failure type: unspecified Qualified Code(s): N17.9 - Acute kidney failure, unspecified (3) Severe sepsis Current Visit: Yes Status: Acute (4) Urinary tract infection Current Visit: Yes Status: Acute Qualifiers: Urinary tract infection type: acute cystitis Hematuria presence: without hematuria Qualified Code(s): N30.00 - Acute cystitis without hematuria (5) Hypothyroid Current Visit: Yes Status: Chronic Qualifiers: Hypothyroidism type: unspecified Qualified Code(s): E03.9 - Hypothyroidism, unspecified (6) Parkinson disease Current Visit: Yes Status: Chronic - Plan Encephalopathy is improving Tube feeding-Ensure Continue IV Rocephin. Follow blood cultures. Repeat blood culture today. Continue IV hydration with normal saline. Creatinine only improved slightly from yesterday Maintain Richey catheter Haldol p.r.n. for agitation Re-evaluate swallowing tomorrow. Continue dementia medications. Continue Sinemet for Parkinson's disease. dental laboratory worker is assisting with discharge planning. Physician Review: Patient Assessed, Agree with Above Assessment and Plan
--- NOTE | 2019-12-14 11:04 | P.PN ---
Subjective Date of Service: 12/14/19 Primary Care Provider: MAGDALENO Chief Complaint: Urosepsis, Acute Kidney Failure Subjective Py with Parkinson disease, admitted for weakness, poor oral intake and decreased mentation today still with poor oral intake NA 149, will reduce IVF rate , if still with hypernatremia tomorrow , will switch fluid to D5W will start on Po iron Physical exam general: Somnolent, thin Neck; Supple, No elevated JVD hear: RRR, normal S1,2 no murmur or rub Chest: CTAB, no rlaes or wheezes Abdomen: Soft , Nt , enriquez catheter Extremities No edema or ulcer A/P SHILOH on CKD? unknown baseline Cr SHILOH due to dehydration pt likely have underlying CKD , as US revealed echogenic kidneys cont IVF , will reduce rate avoid NSAID Hypernatremia saline induced will reduce rate f still with hypernatremia tomorrow , will switch fluid to D5W Urosepsis cont ABx AMS possibly due to sepsis vs parkinosn disease failure to thrive Cont IVF for now consider alternate methods of feeding of no improvement debility PT/OT Physical Examination - Vital Signs Temperature: 97.7 F Blood Pressure: 111/58 Pulse: 88 Respirations: 19 Pulse Ox (%): 97 - Studies Microbiology Data (last 24 hrs): 12/12/19 16:50 Catheterized Urine [place] Count - Final >100,000 CFU/ML. 12/12/19 16:50 Catheterized Urine - Final Escherichia Coli Assessment And Plan Physician Review: Patient Assessed, Agree with Above Assessment and Plan
[2019-12-14] MEDS: ENOXAPARIN 30 MG/0.3 ML SQ SCH (17:01)
[2019-12-14] MEDS: DONEPEZIL HCL 5 MG TAB PO SCH (22:13)
[2019-12-15] MEDS: CEFTRIAXONE/SWI 1gm 1 GM/10 ML SYR IV SCH ×2 (05:23→16:07)
[2019-12-15] MEDS: CARBIDOPA/LEVODOPA 25/100 TAB PO SCH ×4 (05:25→18:00)
[2019-12-15 06:41] LABS: Albumin 1.8 g/dL (3.4-5.0); Magnesium 2.2 mg/dL (1.8-2.4); Phosphorus 1.9 mg/dL (2.5-4.9); Potassium 3.5 mmol/L (3.5-5.1)
--- NOTE | 2019-12-15 07:30 | RAD REPORT ---
EXAM DESCRIPTION: RAD - Chest Single View - 12/15/2019 6:44 am CLINICAL HISTORY: possible aspiration Chest pain. COMPARISON: Abdomen 1 View (KUB) dated 12/13/2019; Chest Single View dated 12/12/2019 FINDINGS: Portable technique limits examination quality. The lungs are emphysematous but grossly clear. The heart is normal in size. No displaced fractures.En teric tube descends into the stomach. IMPRESSION: Emphysematous lungs.
[2019-12-15] MEDS ORDERED: FERROUS SULFATE 325 MG TAB PO SCH (09:00)
[2019-12-15] MEDS: LEVOTHYROXINE SOD 0.025 MG TAB PO SCH (09:56)
[2019-12-15] MEDS: ENSURE ENLIVE 237 ML CAN PO PRN (09:56)
[2019-12-15] MEDS: MEMANTINE HCL 10 MG TABLET PO SCH ×2 (09:56→20:09)
[2019-12-15] MEDS: D5 0.45 NS 1,000 ML IV SCH ×2 (09:58→23:14)
--- NOTE | 2019-12-15 10:21 | P.PN ---
Subjective Date of Service: 12/15/19 Primary Care Provider: MAGDALENO Chief Complaint: Urosepsis, Acute Kidney Failure Patient interactive. No event last night. Daughter stated patient was coughing with feeding last night. I am told she ambulated with assistance during physical therapy yesterday. NG tube is in place for medications and feeding. Blood culture growing E. coli. Urine culture: Pansensitive E. coli She has been afebrile. Physical Examination - Vital Signs Temperature: 97.6 F Blood Pressure: 129/63 Pulse: 85 Respirations: 17 Pulse Ox (%): 97 - Physical Exam General: In no apparent distress, Other (Frail) HEENT: Mucous membr. moist/pink Neck: Supple Respiratory: Clear to auscultation bilaterally, Normal air movement Cardiovascular: No edema, Regular rate/rhythm, Normal S1 S2 Gastrointestinal: Normal bowel sounds, Soft and benign, No tenderness Musculoskeletal: No swelling, No erythema Integumentary: No rashes, No tenderness/swelling Neurological: Other (Nonfocal.) - Studies Microbiology Data (last 24 hrs): 12/12/19 16:50 Catheterized Urine [place] Count - Final >100,000 CFU/ML. 12/12/19 16:50 Catheterized Urine - Final Escherichia Coli Assessment And Plan - Current Problems (Diagnosis) (1) Metabolic encephalopathy Current Visit: Yes Status: Acute (2) Acute kidney failure Current Visit: Yes Status: Acute Qualifiers: Acute renal failure type: unspecified Qualified Code(s): N17.9 - Acute kidney failure, unspecified (3) Severe sepsis Current Visit: Yes Status: Acute (4) Urinary tract infection Current Visit: Yes Status: Acute Qualifiers: Urinary tract infection type: acute cystitis Hematuria presence: without hematuria Qualified Code(s): N30.00 - Acute cystitis without hematuria (5) Hypothyroid Current Visit: Yes Status: Chronic Qualifiers: Hypothyroidism type: unspecified Qualified Code(s): E03.9 - Hypothyroidism, unspecified (6) Parkinson disease Current Visit: Yes Status: Chronic - Plan Encephalopathy continue to improve Tube feeding-Ensure Continue IV Rocephin. Repeat blood culture result is pending. Continue IV hydration with normal saline. Creatinine is trending down. Maintain Richey catheter Haldol p.r.n. for agitation Speech therapy to follow for ongoing swallow evaluations Continue dementia medications. Continue Sinemet for Parkinson's disease. key worker is assisting with discharge planning. Family is preferring disposition to home.
--- NOTE | 2019-12-15 15:37 | P.PN ---
Subjective Date of Service: 12/15/19 Primary Care Provider: MAGDALENO Chief Complaint: Urosepsis, Acute Kidney Failure Subjective Py with Parkinson disease, admitted for weakness, poor oral intake and decreased mentation today still with poor oral intake Cr slowly improving no sign of fluid overload, will cont IVF Physical exam general: Somnolent, thin Neck; Supple, No elevated JVD hear: RRR, normal S1,2 no murmur or rub Chest: CTAB, no rlaes or wheezes Abdomen: Soft , Nt , enriquez catheter Extremities No edema or ulcer A/P SHILOH on CKD? unknown baseline Cr SHILOH due to dehydration pt likely have underlying CKD , as US revealed echogenic kidneys cont IVF , will reduce rate avoid NSAID Hypernatremia saline induced cont 1/2 NS Urosepsis cont ABx AMS improving possibly due to sepsis vs parkinosn disease failure to thrive Cont IVF for now consider alternate methods of feeding of no improvement debility PT/OT Physical Examination - Vital Signs Temperature: 98.3 F Blood Pressure: 140/63 Pulse: 91 Respirations: 18 Pulse Ox (%): 97 Assessment And Plan Physician Review: Patient Assessed, Agree with Above Assessment and Plan
[2019-12-15] MEDS: ENOXAPARIN 30 MG/0.3 ML SQ SCH (16:07)
[2019-12-15] MEDS: DONEPEZIL HCL 5 MG TAB PO SCH (20:09)
[2019-12-15] MEDS: MELATONIN 3 MG TABLET PO PRN (23:14)
[2019-12-16] MEDS: CEFTRIAXONE/SWI 1gm 1 GM/10 ML SYR IV SCH ×2 (03:31→16:31)
[2019-12-16] MEDS: CARBIDOPA/LEVODOPA 25/100 TAB PO SCH ×4 (06:02→19:00)
[2019-12-16 06:21] LABS: Albumin 1.7 g/dL (3.4-5.0); Magnesium 1.9 mg/dL (1.8-2.4); Phosphorus 2.5 mg/dL (2.5-4.9); Potassium 3.4 mmol/L (3.5-5.1)
--- NOTE | 2019-12-16 09:21 | P.PN ---
Subjective Date of Service: 12/16/19 Primary Care Provider: MAGDALENO Chief Complaint: Urosepsis, Acute Kidney Failure Patient doing well today. No issues overnight. She is tolerating NG tube feeding. Renal function has significantly improved. Repeat blood cultures yielded no growth to date. Physical Examination - Vital Signs Temperature: 97.8 F Blood Pressure: 125/61 Pulse: 80 Respirations: 18 Pulse Ox (%): 96 - Physical Exam General: In no apparent distress Neck: Supple Respiratory: Clear to auscultation bilaterally, Normal air movement Cardiovascular: No edema, Regular rate/rhythm, Normal S1 S2 Capillary refill: <2 Seconds Gastrointestinal: Normal bowel sounds, Soft and benign, No tenderness Musculoskeletal: No swelling, No erythema Integumentary: No rashes Neurological: Other (She moves all extremities spontaneously) Assessment And Plan - Current Problems (Diagnosis) (1) Metabolic encephalopathy Current Visit: Yes Status: Acute (2) Acute kidney failure Current Visit: Yes Status: Acute Qualifiers: Acute renal failure type: unspecified Qualified Code(s): N17.9 - Acute kidney failure, unspecified (3) Severe sepsis Current Visit: Yes Status: Acute (4) Urinary tract infection Current Visit: Yes Status: Acute Qualifiers: Urinary tract infection type: acute cystitis Hematuria presence: without hematuria Qualified Code(s): N30.00 - Acute cystitis without hematuria (5) Hypothyroid Current Visit: Yes Status: Chronic Qualifiers: Hypothyroidism type: unspecified Qualified Code(s): E03.9 - Hypothyroidism, unspecified (6) Parkinson disease Current Visit: Yes Status: Chronic - Plan Encephalopathy has significantly improved. Tube feeding-Ensure Continue IV Rocephin. Patient to complete 7-10 days of antibiotic Repeat blood culture result: No growth to the Continue IV hydration with normal saline. SHILOH resolved but patient is still hypernatremic Maintain Richey catheter Haldol p.r.n. for agitation Speech therapy to follow for ongoing swallow evaluations Continue dementia medications. Continue Sinemet for Parkinson's disease. storage worker is assisting with discharge to home with home health.
[2019-12-16] MEDS: MEMANTINE HCL 10 MG TABLET PO SCH ×2 (09:58→20:34)
[2019-12-16] MEDS: LEVOTHYROXINE SOD 0.025 MG TAB PO SCH (09:59)
[2019-12-16] MEDS: ENSURE ENLIVE 237 ML CAN PO PRN ×2 (10:00→20:53)
--- NOTE | 2019-12-16 12:27 | P.PN ---
Subjective Date of Service: 12/16/19 Primary Care Provider: MAGDALENO Chief Complaint: Urosepsis, Acute Kidney Failure Subjective Py with Parkinson disease, admitted for weakness, poor oral intake and decreased mentation today still with poor oral intake speech and swallow evaluation Cr slowly improving no sign of fluid overload, will cont IVF will remove enriquez Physical exam general: Somnolent, thin Neck; Supple, No elevated JVD hear: RRR, normal S1,2 no murmur or rub Chest: CTAB, no rlaes or wheezes Abdomen: Soft , Nt , enriquez catheter Extremities No edema or ulcer A/P SHILOH on CKD? unknown baseline Cr SHILOH due to dehydration pt likely have underlying CKD , as US revealed echogenic kidneys cont IVF , will reduce rate avoid NSAID Hypernatremia saline induced cont 1/2 NS Urosepsis cont ABx AMS improving possibly due to sepsis vs parkinosn disease failure to thrive Cont IVF for now consider alternate methods of feeding of no improvement debility PT/OT Physical Examination - Vital Signs Temperature: 98.1 F Blood Pressure: 117/59 Pulse: 100 Respirations: 18 Pulse Ox (%): 97 Assessment And Plan Physician Review: Patient Assessed, Agree with Above Assessment and Plan
[2019-12-16] MEDS: D5 0.45 NS 1,000 ML IV SCH (14:32)
[2019-12-16] MEDS: ENOXAPARIN 30 MG/0.3 ML SQ SCH (16:32)
[2019-12-16 19:08] LABS: Absolute Lymphocytes (CBC) 1.6 K/uL (0.7-4.9); Basophils % 0.7 % (0-1.3); Lymphocytes % 11.2 % (15.3-44.8); MPV 8.9 fL (7.6-11.3); RBC Red Blood Cell Count 3.68 M/uL (3.86-4.86)
[2019-12-16 19:32] LABS: Potassium 3.5 mmol/L (3.5-5.1)
[2019-12-16 19:40] LABS: Thyroid Stimulating Hormone 9.96 uIU/mL (0.360-3.740)
[2019-12-16 19:48] LABS: Platelet Estimate ADEQ
[2019-12-16 19:49] LABS: Blood Morphology Comment NOT SEEN (NOT SEEN)
[2019-12-16] MEDS: DONEPEZIL HCL 5 MG TAB PO SCH (20:34)
[2019-12-16] MEDS: MELATONIN 3 MG TABLET PO PRN (22:07)
[2019-12-17] MEDS: D5 0.45 NS 1,000 ML IV SCH ×2 (03:18→22:22)
[2019-12-17] MEDS: CEFTRIAXONE/SWI 1gm 1 GM/10 ML SYR IV SCH ×2 (03:18→16:54)
[2019-12-17] MEDS: CARBIDOPA/LEVODOPA 25/100 TAB PO SCH ×4 (05:30→19:58)
[2019-12-17 05:35] LABS: Absolute Lymphocytes (CBC) 1.6 K/uL (0.7-4.9); Basophils % 0.8 % (0-1.3); Hematocrit 32.3 % (36.0-45.0); Lymphocytes % 12.6 % (15.3-44.8); MPV 10.4 fL (7.6-11.3); RBC Red Blood Cell Count 3.69 M/uL (3.86-4.86)
[2019-12-17 05:41] LABS: Albumin 1.8 g/dL (3.4-5.0); Magnesium 1.7 mg/dL (1.8-2.4); Phosphorus 2.6 mg/dL (2.5-4.9); Potassium 3.5 mmol/L (3.5-5.1)
[2019-12-17] MEDS: LEVOTHYROXINE SOD 0.025 MG TAB PO SCH (09:00)
[2019-12-17] MEDS: MEMANTINE HCL 10 MG TABLET PO SCH ×2 (09:00→20:31)
--- NOTE | 2019-12-17 09:27 | P.PN ---
Subjective Date of Service: 12/17/19 Primary Care Provider: MAGDALENO Chief Complaint: Urosepsis, Acute Kidney Failure Patient doing well. No issues overnight. She is tolerating NG tube feeding. Renal function has significantly improved. Physical Examination - Vital Signs Temperature: 98.1 F Blood Pressure: 144/73 Pulse: 100 Respirations: 16 Pulse Ox (%): 96 - Physical Exam General: Confused, Other (Awake) HEENT: Mucous membr. moist/pink Neck: Supple Respiratory: Clear to auscultation bilaterally, Normal air movement Cardiovascular: No edema, Regular rate/rhythm, Normal S1 S2 Gastrointestinal: Normal bowel sounds, Soft and benign, No tenderness Musculoskeletal: No swelling, No erythema Integumentary: No rashes Neurological: Other (Non-focal) Assessment And Plan - Current Problems (Diagnosis) (1) Metabolic encephalopathy Current Visit: Yes Status: Acute (2) Acute kidney failure Current Visit: Yes Status: Acute Qualifiers: Acute renal failure type: unspecified Qualified Code(s): N17.9 - Acute kidney failure, unspecified (3) Severe sepsis Current Visit: Yes Status: Acute (4) Urinary tract infection Current Visit: Yes Status: Acute Qualifiers: Urinary tract infection type: acute cystitis Hematuria presence: without hematuria Qualified Code(s): N30.00 - Acute cystitis without hematuria (5) Hypothyroid Current Visit: Yes Status: Chronic Qualifiers: Hypothyroidism type: unspecified Qualified Code(s): E03.9 - Hypothyroidism, unspecified (6) Parkinson disease Current Visit: Yes Status: Chronic - Plan Patient clinically improved. Speech therapy to follow and re-evaluate her swallow. Will discontinue NGT patient is able to swallow. Continue IV Rocephin. Patient to complete 7-10 days of antibiotic. Will transition to oral antibiotics on discharge. Repeat blood culture result: No growth to date Continue IV hydration with normal saline. Maintain Richey catheter Haldol p.r.n. for agitation Continue dementia medications. Continue Sinemet for Parkinson's disease. Anticipating Dc to home with home health.
[2019-12-17] MEDS: ENSURE ENLIVE 237 ML CAN PO PRN (11:07)
--- NOTE | 2019-12-17 15:04 | RAD REPORT ---
EXAM DESCRIPTION: RAD - Barium Swallow Modified - 12/17/2019 2:24 pm CLINICAL HISTORY: previously faily swallow screen, NGT removal COMPARISON: Modified barium swallow December 12 TECHNIQUE: The patient was given liquid, semi-solid and solid forms of barium. Lateral view fluorosc opic imaging was performed in conjunction with speech pathology service. FINDINGS: Cineloop acquisitions: 18 Fluoro time: 5 minutes 49 seconds Laryngeal penetration: cleared with thin liquid by teaspoon. Aspiration with thin by cup sip, and nectar cup sip. had a cough and no cough. Pharyngeal residue: Vallecular, Pyriform, Posterior wall. was severe wih all consistencies. Tiny pocket in upper esophageal region at level of C7. IMPRESSION: Modified barium swallow as summarized above and fully detailed on speech pathology repor steffi
[2019-12-17] MEDS: ENOXAPARIN 30 MG/0.3 ML SQ SCH (16:54)
[2019-12-17] MEDS ORDERED: MAGNESIUM OXIDE 400 MG TAB PO ONE (19:59)
[2019-12-17] MEDS: DONEPEZIL HCL 5 MG TAB PO SCH (20:31)
[2019-12-17 22:02] LABS: Alpha-1-Globulins 0.5 g/dL (0.2-0.3); Alpha-2-Globulins 0.9 g/dL (0.5-0.9); Gamma Globulins 0.9 g/dL (0.8-1.7); INTERPRETATION REPORT
--- NOTE | 2019-12-17 22:59 | PN ---
Date of Progress Note: 12/17/2019 Chief Complaint: Urosepsis, acute kidney injury. Subjective: The patient has multiple medical problems including history of Parkinson disease. She w as admitted for weakness and failure to thrive. She was confused. Today, she is more alert and p.o. intake is somewhat improving. Review of Systems: Denies complaints. Physical Examination: Lungs: Diminished breath sounds at bases. Heart: S1, S2. Abdomen: Soft, benign. Extremities: No edema. Assessment And Plan: 1.Acute kidney injury on chronic kidney disease. Acute kidney injury is due to volume depletion and dehydration. Continue adequate hydration. Monitor renal function and electrolytes. Avoid nonstero idal anti-inflammatory medication. 2.Hypernatremia. Continue half-normal saline. 3.Urosepsis, on antibiotics. 4.Hypertension. Blood pressure controlled. Continue current medication. AYAN/MODSebas Voice ID: [id number] Report ID: [id number]
[2019-12-18] MEDS: CEFTRIAXONE/SWI 1gm 1 GM/10 ML SYR IV SCH ×2 (03:38→16:25)
[2019-12-18 04:36] LABS: Absolute Lymphocytes (CBC) 1.8 K/uL (0.7-4.9); Basophils % 0.4 % (0-1.3); Lymphocytes % 12.5 % (15.3-44.8); MPV 10.5 fL (7.6-11.3); RBC Red Blood Cell Count 3.43 M/uL (3.86-4.86)
[2019-12-18 04:46] LABS: Albumin 1.9 g/dL (3.4-5.0); Magnesium 1.8 mg/dL (1.8-2.4); Phosphorus 2.4 mg/dL (2.5-4.9); Potassium 3.3 mmol/L (3.5-5.1)
[2019-12-18] MEDS: LEVOTHYROXINE SOD 0.025 MG TAB PO SCH (07:23)
[2019-12-18] MEDS: CARBIDOPA/LEVODOPA 25/100 TAB PO SCH ×4 (07:23→18:43)
[2019-12-18] MEDS: MEMANTINE HCL 10 MG TABLET PO SCH ×2 (09:07→21:17)
[2019-12-18] MEDS ORDERED: POTASSIUM PHOS 10 MM in NA CHLORIDE 0.9% 250 ML IV ONE (10:18)
[2019-12-18] MEDS ORDERED: MAGNESIUM SULFATE 1 gm IVPB 1 GM/100 ML BAG IV ONE (10:18)
[2019-12-18] MEDS: D5W 1,000 ML with POTASSIUM CL 20 MEQ IV SCH ×2 (11:16)
--- NOTE | 2019-12-18 11:34 | P.PN ---
Subjective Date of Service: 12/18/19 Primary Care Provider: MAGDALENO Chief Complaint: Urosepsis, Acute Kidney Failure Subjective: Improving (feeling better, without complaints, but daughter states patient was complaining of intermittent cough. Discussed failed swallow study, patient and daughter would like to proceed with PEG tube placement) Review of Systems 10-point ROS is otherwise unremarkable Physical Examination - Vital Signs Temperature: 98.6 F Blood Pressure: 135/72 Pulse: 86 Respirations: 18 Pulse Ox (%): 95 - Physical Exam General: Alert, Oriented x2, Confused HEENT: Sclerae nonicteric Respiratory: Diminished (at bases bilaterally) Cardiovascular: No edema, Regular rate/rhythm Gastrointestinal: Soft and benign, Non-distended, Tenderness Musculoskeletal: No tenderness Integumentary: No rashes Neurological: Normal affect - Studies Microbiology Data (last 24 hrs): 12/12/19 15:05 Blood - Blood Anaerobic Blood Culture - Final No growth in 5 days. Assessment & Plan Physician Review Additional Text: Sepsis secondary to UTI (cystitis) Mild oral dysphagia with severe pharyngeal dysphagia, high risk of aspiration Dementia, chronic SHILOH, resolving clinically improving continue IVF hydration, renal consulted, SHILOH improving, IVF switched to d5 1/2NS due to mild hypernatremia continue IV rocephin for e.coli (will need 7-10 days of abx), switch to PO/PEG Abx on discharge speech therapy consulted - with high risk of aspiration / severe pharyngeal dysphagia - GI consulted for PEG tube placement continue home dementia medications, sinemet for parkinsons Dispo: anticipate dc home vs inpatient rehab in 1-2 days - pending PEG tube placement Time Spent Managing Pts Care (In Minutes): 35
--- NOTE | 2019-12-18 14:30 | PN ---
Date of Progress Note: 12/18/2019 Subjective: The patient was admitted with acute kidney injury secondary to prerenal, UTI with bacter emia. The patient has started recovering. Physical Examination: Vital Signs: Blood pressure 135/72, pulse of 86, afebrile. The patient had good urine output of 800 . Chest: Clear to auscultation. Heart: S1, S2. Regular. Abdomen: Soft, nontender. Extremities: No edema. Neuro: Alert. No focality. Laboratory Data: WBC 14, H and H 9.9/30, platelet 199. Sodium 147, potassium 3.3, bicarb 30, BUN 25 , creatinine down to 1.4, GFR of 34, calcium 7.6, phosphorus 2.4, magnesium 1.8, albumin 1.9. Correc chichi calcium is 9.2. Current Medications: The patient on include , Lovenox, Plavix, carbidopa, Zofran, D5 half. Assessment And Plan: 1.Acute kidney injury, multifactorial, secondary to prerenal, superimposed with toxic acute tubular necrosis secondary to urosepsis, recovered, nonoliguric, currently normal volume. I am going to go a head and discontinue IV fluid and we will monitor the patient. 2.Hypernatremia. I am going to change IV fluid to D5 to have better hydration and to control the hy pernatremia. 3.Hypokalemia, hypophosphatemia. We will supplement. 4.Hypomagnesemia. We will supplement. 5.Urinary tract infection secondary to Escherichia coli, complicated with bacteremia. Continue curr ent antibiotics, sensitivity noticed. 6.Deconditioning. Continue PT, OT. LEVI/EULOGIO Voice ID: [id number] Report ID: [id number]
[2019-12-18] MEDS: ENOXAPARIN 30 MG/0.3 ML SQ SCH (16:25)
[2019-12-18] MEDS: DONEPEZIL HCL 5 MG TAB PO SCH (21:17)
[2019-12-19] MEDS: D5W 1,000 ML with POTASSIUM CL 20 MEQ IV SCH ×8 (00:28→22:18)
[2019-12-19] MEDS: CEFTRIAXONE/SWI 1gm 1 GM/10 ML SYR IV SCH ×2 (03:24→15:27)
[2019-12-19] MEDS: CARBIDOPA/LEVODOPA 25/100 TAB PO SCH ×4 (05:34→21:11)
[2019-12-19 05:57] LABS: Absolute Lymphocytes (CBC) 1.8 K/uL (0.7-4.9); Basophils % 0.5 % (0-1.3); Hematocrit 31.8 % (36.0-45.0)
[2019-12-19 06:10] LABS: Magnesium 2.3 mg/dL (1.8-2.4); Phosphorus 2.8 mg/dL (2.5-4.9); Potassium 3.5 mmol/L (3.5-5.1)
[2019-12-19] MEDS: LEVOTHYROXINE SOD 0.025 MG TAB PO SCH (08:34)
[2019-12-19] MEDS: MEMANTINE HCL 10 MG TABLET PO SCH ×2 (08:34→21:11)
--- NOTE | 2019-12-19 09:48 | P.PN ---
Subjective Date of Service: 12/19/19 Primary Care Provider: MAGDALENO Chief Complaint: Urosepsis, Acute Kidney Failure Subjective: No new changes (overall feeling ok, mentation and strength slowly improving now having difficulty with swallowing, NGT uncomfortable, failed MBS and pursuing PEG tube placement. continues with gurgling in throat, able to cough stuff out) Physical Examination - Vital Signs Temperature: 97.8 F Blood Pressure: 147/90 Pulse: 92 Respirations: 18 Pulse Ox (%): 97 - Physical Exam General: Alert, In no apparent distress, Oriented x3, Cachectic HEENT: Sclerae nonicteric Neck: Supple Respiratory: Clear to auscultation bilaterally (occasional upper airway noises), Normal air movement Cardiovascular: No edema, Regular rate/rhythm Gastrointestinal: Soft and benign, Non-distended, No tenderness Musculoskeletal: No tenderness Neurological: Normal speech, Normal affect Assessment & Plan Physician Review Additional Text: Sepsis secondary to UTI (cystitis) Mild oral dysphagia with severe pharyngeal dysphagia, high risk of aspiration Dementia, chronic Parkinson's SHILOH, resolving clinically improving, but still with dysphagia / gurgling on oral secretions, but with good cough and seemingly able to clear throat continue IVF hydration, renal consulted, SHILOH improving, IVF switched to d5 1/2NS due to mild hypernatremia on 12/17 continue IV rocephin for e.coli (will need 7-10 days of abx), switch to PO/PEG Abx on discharge leukocytosis remains at 14k for a few days now, sensitivities reviewed, and sensitive to rocephin; procal was improving, will recheck procal, urine & blood cultures speech therapy consulted - with high risk of aspiration / severe pharyngeal dysphagia - GI consulted for PEG tube placement. possibly due to missing ~2days of parkinson medications continue home dementia medications, sinemet for parkinsons Dispo: anticipate dc home pending PEG tube placement Time Spent Managing Pts Care (In Minutes): 35
[2019-12-19] MEDS ORDERED: JEVITY 1.2 CAL LIQUID 1,000 ML BOT FT SCH (10:00)
[2019-12-19] MEDS ORDERED: POTASSIUM CL 40 MEQ in NA CHLORIDE 0.9% 500 ML IV SCH (11:00)
--- NOTE | 2019-12-19 11:22 | PN ---
Date of Progress Note: 12/19/2019 Subjective: The patient was admitted with acute kidney injury secondary to prerenal . The patient was started on hydration. Kidney function started being improving. Physical Examination: Vital Signs: Blood pressure 147/90, pulse of 92. The patient had good urine output of 800. Chest: Clear to auscultation. Heart: S1, S2. Systolic murmur. Abdomen: Soft, nontender. Extremities: no edema. Neuro: Sleepy. NG tube. Laboratory Data: H and H 10.7/31.8. Sodium 143, potassium of 3.5, bicarb of 29, BUN 19, creatinine down to 1.3, GFR 39, calcium 7.8, phosphorus 2.8, magnesium 2.3, albumin 1.9, corrected calcium is 9. 4, PTH of 77. Current Medications: The patient on include, 1.Ceftriaxone. 2. . 3.Lovenox. 4.Keppra. 5.Namenda. 6.Levothyroxine. 7.D5. Assessment And Plan: 1.Acute kidney injury secondary to prerenal, recovering. We will continue gentle hydration. 2.Hypernatremia. Continue D5. Sodium is trending down nicely. 3.Hypokalemia. We will supplement. 4.Hypophosphatemia, hypomagnesemia, resolved. 5.Urinary tract infection secondary to Escherichia coli, complicated with bacteremia, urosepsis. Co ntinue current antibiotic. Follow up with the primary. 6.Deconditioning. Continue PT, OT. 7.Failure to thrive. Plan for PEG tube. MA/MODL Voice ID: [id number] Report ID: [id number]
[2019-12-19 13:56] LABS: Vitamin D 1,25-Dihydroxy Total 12 pg/mL (18-72); Vitamin D,1,25-OH2, D2 <8 pg/mL
[2019-12-19] MEDS ORDERED: JEVITY 1.2 CAL LIQUID 1,000 ML BOT RTH SCH (14:00)
[2019-12-19] MEDS: ENOXAPARIN 30 MG/0.3 ML SQ SCH (18:06)
[2019-12-19] MEDS: DONEPEZIL HCL 5 MG TAB PO SCH (21:11)
[2019-12-20] MEDS: CEFTRIAXONE/SWI 1gm 1 GM/10 ML SYR IV SCH ×2 (03:15→16:15)
[2019-12-20] MEDS: D5W 1,000 ML with POTASSIUM CL 20 MEQ IV SCH ×4 (03:24→16:15)
[2019-12-20] MEDS: CARBIDOPA/LEVODOPA 25/100 TAB PO SCH ×4 (05:51→21:29)
[2019-12-20 06:27] LABS: Absolute Lymphocytes (CBC) 1.8 K/uL (0.7-4.9); Hematocrit 32.5 % (36.0-45.0); Lymphocytes % 12.5 % (15.3-44.8); MPV 8.6 fL (7.6-11.3); RBC Red Blood Cell Count 3.69 M/uL (3.86-4.86)
[2019-12-20 06:48] LABS: Magnesium 1.9 mg/dL (1.8-2.4); Potassium 3.9 mmol/L (3.5-5.1)
[2019-12-20] MEDS: LEVOTHYROXINE SOD 0.025 MG TAB PO SCH (07:30)
[2019-12-20] MEDS: MEMANTINE HCL 10 MG TABLET PO SCH ×2 (07:51→21:25)
[2019-12-20] MEDS ORDERED: Ringers Lactate 1,000 ML IV ONE (09:14)
[2019-12-20] MEDS ORDERED: HYDRALAZINE HCL 20 MG/ML VIAL IV PRN (09:23)
--- NOTE | 2019-12-20 09:30 | P.PN ---
Subjective Date of Service: 12/20/19 Primary Care Provider: MAGDALENO Chief Complaint: Urosepsis, Acute Kidney Failure Subjective: Improving (getting more of her strength back, feels like slowly getting "back to her normal self" discomfort from NG tube, no SOB/chest pain) Review of Systems 10-point ROS is otherwise unremarkable Physical Examination - Vital Signs Temperature: 99.1 F Blood Pressure: 186/85 Pulse: 97 Respirations: 16 Pulse Ox (%): 97 - Physical Exam General: Alert, In no apparent distress, Oriented x3 HEENT: Sclerae nonicteric Respiratory: Clear to auscultation bilaterally Cardiovascular: No edema, Regular rate/rhythm Gastrointestinal: Soft and benign, Non-distended, No tenderness Neurological: Normal speech, Normal affect Assessment & Plan Physician Review Additional Text: Sepsis secondary to UTI (cystitis) Mild oral dysphagia with severe pharyngeal dysphagia, high risk of aspiration Dementia, chronic Parkinson's SHILOH, resolving clinically improving, but still with dysphagia / gurgling on oral secretions, but with good cough, speaking more clearly today for me renal consulted, SHILOH improving, IVF switched to d5 1/2NS due to mild hypernatremia on 12/17 - can likely switch to free water via PEG after placement continue IV rocephin for e.coli (will need 7-10 days of abx), switch to PO/PEG Abx on discharge leukocytosis remains at 14k for a few days now, sensitivities reviewed, and sensitive to rocephin; Procalcitonin improving, urine & blood cultures rechecked on 12/18 speech therapy consulted - with high risk of aspiration / severe pharyngeal dysphagia - GI consulted for PEG tube placement. possibly due to missing ~2days of parkinson medications. for PEG placement today continue home dementia medications, sinemet for parkinsons Dispo: anticipate dc home in 24-48hrs, pending PEG placement and advancement / tolerating tube feeds daughter prefers taking patient home, will need home health, PT, tube feed supplies Time Spent Managing Pts Care (In Minutes): 35
[2019-12-20] MEDS ORDERED: LIDOCAINE 1% MPF 5 ML VIAL ONE (09:53)
[2019-12-20] MEDS ORDERED: propofoL 200 MG/20 ML VIAL IV ONE (09:53)
[2019-12-20] MEDS: AMPICILLIN/SULBACT 3 GM in NA CHLORIDE 0.9% 100 ML IVPB ONE ×2 (09:57→10:00)
[2019-12-20] MEDS: ENOXAPARIN 30 MG/0.3 ML SQ SCH (16:14)
--- NOTE | 2019-12-20 17:24 | PN ---
Date of Progress Note: 12/20/2019 Subjective: The patient was admitted with acute kidney injury, hypernatremia. The patient had failu re to thrive. The patient is status post PEG tube today. The patient is sleepy. Physical Examination: Vital Signs: Blood pressure 131/74, pulse of 88. Had good urine output. Chest: Faint thrills bilateral. Heart: S1, S2. Systolic murmur. Abdomen: PEG tube. Extremities: No edema. Neuro: The patient is sleepy. No focality. Laboratory Data: H and H 10.7/32.5. Sodium 140, potassium 3.9, bicarb 28, BUN 15, creatinine 1.3, c alcium 8.2, magnesium 1.9. Current Medications: The patient is on Zosyn, ceftriaxone, , Sinemet, Namenda, Zofran, lev othyroxine, D5 at 75. Assessment And Plan: 1.Acute kidney injury secondary to prerenal, recovered, resolved. 2.Hypernatremia secondary to dehydration. Continue D5. 3.Hypophosphatemia/hypomagnesemia, resolved. 4.Urinary tract infection secondary to Escherichia coli with bacteremia. Continue current antibioti c. We will follow up with the primary. 5.Failure to thrive, status post PEG tube. We will follow up. LEVI/EULOGIO Voice ID: [id number] Report ID: [id number]
[2019-12-20] MEDS: DONEPEZIL HCL 5 MG TAB PO SCH (21:24)
[2019-12-20] MEDS: MELATONIN 3 MG TABLET PO PRN (21:29)
[2019-12-21] MEDS: CEFTRIAXONE/SWI 1gm 1 GM/10 ML SYR IV SCH (03:58)
[2019-12-21] MEDS: D5W 1,000 ML with POTASSIUM CL 20 MEQ IV SCH ×2 (05:41)
[2019-12-21] MEDS: CARBIDOPA/LEVODOPA 25/100 TAB PO SCH ×4 (05:42→18:35)
[2019-12-21 05:45] LABS: Absolute Lymphocytes (CBC) 1.6 K/uL (0.7-4.9); Basophils % 1.1 % (0-1.3); Hematocrit 30.6 % (36.0-45.0); Lymphocytes % 17.5 % (15.3-44.8); MPV 9.3 fL (7.6-11.3); RBC Red Blood Cell Count 3.47 M/uL (3.86-4.86)
[2019-12-21 06:07] LABS: Magnesium 1.9 mg/dL (1.8-2.4); Potassium 3.8 mmol/L (3.5-5.1)
--- NOTE | 2019-12-21 08:35 | P.PN ---
Subjective Date of Service: 12/21/19 Primary Care Provider: MAGDALENO Chief Complaint: Urosepsis, Acute Kidney Failure Subjective: Improving (s/p PEG placement yesterday, pt reports doing well, mild soreness in abdomen at site of procedure feels she is having less "junk in thro at") Physical Examination - Vital Signs Temperature: 98.3 F Blood Pressure: 142/78 Pulse: 86 Respirations: 20 Pulse Ox (%): 97 - Physical Exam General: Alert, In no apparent distress, Oriented x3 HEENT: Sclerae nonicteric Respiratory: Clear to auscultation bilaterally (with some upper airway sounds) Cardiovascular: No edema, Regular rate/rhythm Gastrointestinal: Soft and benign, Non-distended, Other (PEG tube in place, dressing c/d/i) Neurological: Normal speech, Normal affect Assessment & Plan Physician Review Additional Text: Sepsis secondary to UTI (cystitis) Mild oral dysphagia with severe pharyngeal dysphagia, high risk of aspiration Dementia, chronic Parkinson's SHILOH, resolving clinically improving renal consulted, SHILOH improving, IVF switched to d5 1/2NS due to mild hypernatremia on 12/17 - can likely switch to free water now that PEG has been placed will dc IV Rocephin - pt has completed ~8 days of abx leukocytosis resolved, procal downtrended, repeat urine & blood cx NGTD on 12/18 PEG placed 12/19 - due to severe pharyngeal dysphagia with high risk of aspiration. likely partly due missing parkinson medications prior to admission and for 1-2 days initially here continue home dementia medications, sinemet for parkinsons Dispo: anticipate dc home in the next 24-48hrs, will start/advance feeds daughter prefers taking patient home, will need home health, PT, tube feed supplies Time Spent Managing Pts Care (In Minutes): 35
[2019-12-21] MEDS ORDERED: EPINEPHRINE/PF 1 MG/ML AMP ONE (08:40)
[2019-12-21] MEDS ORDERED: NA CHLORIDE 0.9% 0 ML ONE (08:40)
[2019-12-21] MEDS ORDERED: Ringers Lactate 0 ML IV ONE (08:40)
--- NOTE | 2019-12-21 09:42 | P.PN ---
Subjective Date of Service: 12/21/19 Primary Care Provider: MAGDALENO Chief Complaint: Urosepsis, Acute Kidney Failure Subjective Py with Parkinson disease, admitted for weakness, poor oral intake and decreased mentation S/p PEG today plan to start on PEG feeding Cr stable , will dc IVF possible discharge tomorrow cont current management Physical exam general: Somnolent, thin Neck; Supple, No elevated JVD hear: RRR, normal S1,2 no murmur or rub Chest: CTAB, no rlaes or wheezes Abdomen: Soft , Nt , PEG tube Extremities No edema or ulcer A/P SHILOH on CKD? Cr now stable ~1.3 SHILOH due to dehydration pt likely have underlying CKD , as US revealed echogenic kidneys avoid NSAID Hypernatremia resolved Urosepsis on ABx AMS improved, stable now possibly due to sepsis vs parkinosn disease failure to thrive S/P PEG placement debility PT/OT Physical Examination - Vital Signs Temperature: 98.3 F Blood Pressure: 142/78 Pulse: 86 Respirations: 20 Pulse Ox (%): 97 Assessment And Plan Physician Review: Patient Assessed, Agree with Above Assessment and Plan
--- NOTE | 2019-12-21 09:53 | OP ---
Date of Procedure: 12/20/2019 Surgeon: Jose F Ocampo MD Procedure To Be Performed: Esophagogastroduodenoscopy with PEG placement. Indications For Procedure: Failed modified barium swallow, risk of aspiration, failure to thrive. Plan For Anesthesia: Monitored anesthesia care. Complexity: High due to nature of the procedure. Technique: After obtaining informed consent from the patient's daughter who is a healthcare proxy an d explaining risks and complications which include but are not limited to bleeding, infection, perfor ation, and anesthesia complications. The patient was placed in a supine position and sedation was gi leah. From then on, the scope was advanced into the mouth and carefully guided up to the second porti on of the duodenum. After the completion of examination and all therapeutic maneuvers, the scope and equipment were withdrawn and procedure terminated in a safe manner. Findings: Esophagus: No gross lesions seen in the upper and mid esophagus. In the distal esophagus , there was evidence of LA grade A esophagitis. Stomach: Mild patchy erythema seen in the antrum. Duodenum: The bulb and second portion appeared normal. After completing the examination portion, attention was focused to the gastric body. Site was identi fied with good transillumination and one-to-one pressure. Then, under aseptic and sterile technique, a 20-[employer] PEG tube was placed with a pull guidewire technique after using 3 cc o f local lidocaine under the abdominal skin. External bumper was at 3-3.25 cm. Position inside the s tomach was confirmed with repeat endoscopy. Complications: None. Tolerance To Anesthesia: Excellent. Postoperative Diagnoses: Successful PEG placement, esophagitis. Plan: Continue current management. N.p.o. for today except for medications. Can start diet tomorro w after consulting the Nutrition. PPI through the PEG. Recall GI if needed. US/MODL Voice ID: [id number] Report ID: [id number]
[2019-12-21] MEDS: MEMANTINE HCL 10 MG TABLET PO SCH ×2 (10:21→21:03)
[2019-12-21] MEDS: LEVOTHYROXINE SOD 0.025 MG TAB PO SCH (10:21)
[2019-12-21] MEDS: Pantoprazole (granules) 40 MG/BLIST PACKET FT SCH (10:24)
[2019-12-21] MEDS: JEVITY 1.5 CAL LIQUID 1,000 ML BOT FT SCH ×3 (13:52→21:05)
[2019-12-21] MEDS: ENOXAPARIN 30 MG/0.3 ML SQ SCH (16:49)
[2019-12-21] MEDS: MELATONIN 3 MG TABLET PO PRN (21:04)
[2019-12-21] MEDS: DONEPEZIL HCL 5 MG TAB PO SCH (21:04)
[2019-12-22] MEDS: Pantoprazole (granules) 40 MG/BLIST PACKET FT SCH (06:14)
[2019-12-22] MEDS: CARBIDOPA/LEVODOPA 25/100 TAB PO SCH ×4 (06:36→18:44)
[2019-12-22 06:42] LABS: Potassium 3.7 mmol/L (3.5-5.1)
--- NOTE | 2019-12-22 08:08 | P.PN ---
Subjective Date of Service: 12/22/19 Primary Care Provider: MAGDALENO Chief Complaint: Urosepsis, Acute Kidney Failure Subjective: Improving (slowly feeling strength is returning, feeling better tolerating PEG bolus feeds) Physical Examination - Vital Signs Temperature: 98.7 F Blood Pressure: 141/70 Pulse: 95 Respirations: 18 Pulse Ox (%): 96 - Physical Exam General: Alert, In no apparent distress, Oriented x3 HEENT: Sclerae nonicteric Respiratory: Clear to auscultation bilaterally Cardiovascular: No edema, Regular rate/rhythm Gastrointestinal: Soft and benign, Non-distended, Other (PEG tube in place) Musculoskeletal: No tenderness Integumentary: No rashes Neurological: Normal speech, Normal affect Assessment & Plan Physician Review Additional Text: Sepsis secondary to UTI (cystitis), resolved Mild oral dysphagia with severe pharyngeal dysphagia, high risk of aspiration failure to thrive Dementia, chronic Parkinson's SHILOH, resolving doing well. completed 8 days of IV rocephin. leukocytosis resolved, repeat urine & blood cx NGTD on 12/18 SHILOH resolved with IVF hydration PEG placed 12/19 - for FTT and severe pharyngeal dysphagia with high risk of aspiration. likely partly due missing parkinson medications prior to admission and for 1-2 days initially here continue home dementia medications, sinemet for parkinsons PT working with patient, walked ~250ft yesterday Dispo: dc home once home health / tube feeds set up, SW/CM consulted will need home PT as well Time Spent Managing Pts Care (In Minutes): 35
[2019-12-22] MEDS: JEVITY 1.5 CAL LIQUID 1,000 ML BOT FT SCH ×4 (10:06→20:54)
[2019-12-22] MEDS: LEVOTHYROXINE SOD 0.025 MG TAB PO SCH (10:07)
[2019-12-22] MEDS: MEMANTINE HCL 10 MG TABLET PO SCH ×2 (10:07→20:54)
[2019-12-22] MEDS: ENOXAPARIN 30 MG/0.3 ML SQ SCH (17:06)
[2019-12-22] MEDS: DONEPEZIL HCL 5 MG TAB PO SCH (20:53)
--- NOTE | 2019-12-22 21:58 | PN ---
Date of Progress Note: 12/22/2019 Chief Complaint: Acute kidney injury on chronic kidney disease. Subjective: The patient has chronic kidney disease stage 3. Baseline creatinine level is 1.0 to 1.3 . The patient developed acute kidney injury due to volume depletion. Ultrasound reveals echogenic k idneys. The patient has history of nonsteroidal anti-inflammatory medication. The patient was treated for hypernatremia with IV fluids and electrolytes are stabilizing. The patie nt has history of Parkinson disease as she was admitted for weakness, failure to thrive, poor p.o. in take, and decreased mentation. She underwent PEG placement today. The patient denies new complaints . Physical Examination: Lungs: Diminished breath sounds at bases. Heart: S1, S2. Abdomen: Soft, benign. Extremities: No edema. Impression And Plan: 1.Acute on chronic kidney injury. Avoid nephrotoxic medication. Avoid nonsteroidal anti-inflammato ry medication. Renal function is stabilizing. Monitor electrolytes when the patient is on PEG tube feeding. 2.Hypernatremia, resolved. Continue adequate fluid intake with PEG tube feeding. 3.Altered mental status, multifactorial. The patient developed altered mental status due to sepsis and Parkinson disease. Further recommendation from primary team. EB/MODL Voice ID: [id number] Report ID: [id number]
[2019-12-23] MEDS: CARBIDOPA/LEVODOPA 25/100 TAB PO SCH ×5 (05:55→18:33)
[2019-12-23] MEDS: Pantoprazole (granules) 40 MG/BLIST PACKET FT SCH (05:55)
[2019-12-23] MEDS: LEVOTHYROXINE SOD 0.025 MG TAB PO SCH (06:35)
[2019-12-23 06:53] LABS: Potassium 3.5 mmol/L (3.5-5.1)
[2019-12-23] MEDS: JEVITY 1.5 CAL LIQUID 1,000 ML BOT FT SCH ×4 (09:20→21:25)
[2019-12-23] MEDS: MEMANTINE HCL 10 MG TABLET PO SCH ×2 (09:21→21:24)
--- NOTE | 2019-12-23 09:28 | P.PN ---
Subjective Date of Service: 12/23/19 Primary Care Provider: MAGDALENO Chief Complaint: Urosepsis, Acute Kidney Failure Subjective: No new changes (overall reports doing well, had a "rough" night, with some "owning" per daughter patient feeling better, feels like she is getting strength back, worked with PT yesterday) Physical Examination - Vital Signs Temperature: 98.3 F Blood Pressure: 107/52 Pulse: 86 Respirations: 19 Pulse Ox (%): 96 - Physical Exam General: Alert, In no apparent distress, Oriented x3 HEENT: Sclerae nonicteric Respiratory: Clear to auscultation bilaterally, Normal air movement Cardiovascular: No edema, Regular rate/rhythm Gastrointestinal: Soft and benign, Non-distended, No tenderness, Other (PEG tube in place) Musculoskeletal: No tenderness Integumentary: No rashes Neurological: Normal speech, Normal affect Assessment & Plan Physician Review Additional Text: Sepsis secondary to UTI (cystitis), resolved Mild oral dysphagia with severe pharyngeal dysphagia, high risk of aspiration failure to thrive Dementia, chronic Parkinson's SHILOH, resolving doing well. completed 8 days of IV rocephin. leukocytosis resolved, repeat urine & blood cx from 12/18 NGTD SHILOH resolved with IVF hydration, transitioned to PO feeds after PEG placement 12/19 (for FTT & severe pharyngeal dysphagia with high risk of aspiration. likely partly due missing parkinson medications prior to admission and for 1-2 days initially here) continue home dementia medications, sinemet for parkinsons PT working with patient, improving restart home mirtazpine qHS Dispo: dc home once home health / tube feeds set up, SW/CM consulted will need home PT as well Time Spent Managing Pts Care (In Minutes): 35
[2019-12-23] MEDS: ENOXAPARIN 30 MG/0.3 ML SQ SCH (16:56)
[2019-12-23] MEDS ORDERED: MIRTAZAPINE 15 MG TAB PO SCH (21:00)
[2019-12-23] MEDS: DONEPEZIL HCL 5 MG TAB PO SCH (21:24)
[2019-12-23] MEDS: MELATONIN 3 MG TABLET PO PRN (21:28)
--- NOTE | 2019-12-24 00:37 | PN ---
Date of Progress Note: 12/23/2019 Chief Complaint: Acute on chronic kidney injury. Subjective: Patient has chronic kidney disease stage 3. Baseline creatinine is ranging from 1.0 to 1.3. She developed acute kidney injury secondary to volume depletion, resulted in nonoliguric ATN an d prerenal azotemia. Renal ultrasound reveals echogenic kidneys, which goes along with chronic kidne y disease. Patient has history of nonsteroidal anti-inflammatory medication treatment and patient wa s treated for hypernatremia with IV fluids and electrolytes are stabilizing. Patient has history of Parkinson disease and she was admitted for weakness, failure to thrive, and volume depletion. Prior to this admission, she had poor p.o. intake. She had decreased mentation. She had a PEG placement a nd is started on tube feeding. Review of Systems: Unobtainable. Patient has some confusion. Physical Examination: Lungs: Diminished breath sounds at bases. Heart: S1, S2. Abdomen: Soft. Benign. Extremities: No edema. Impression/plan: 1.Acute on chronic kidney injury. Avoid nephrotoxic medication. Continue to advance intake with tu be feeding and continue IV fluids as needed for volume control. 2.Hypernatremia, resolved. Continue adequate fluid intake with PEG tube feeding. 3.Altered mental status, multifactorial. Patient developed altered mental status due to sepsis and Parkinson disease. Further recommendation from primary team. AYAN/MODL Voice ID: [id number] Report ID: [id number]
[2019-12-24] MEDS: CARBIDOPA/LEVODOPA 25/100 TAB PO SCH ×2 (05:39→12:28)
[2019-12-24] MEDS: Pantoprazole (granules) 40 MG/BLIST PACKET FT SCH (05:39)
[2019-12-24 05:40] LABS: Potassium 3.8 mmol/L (3.5-5.1)
--- NOTE | 2019-12-24 08:55 | P.DS ---
Admission Date: 12/12/19 Discharge Date: 12/24/19 Primary Care Provider: OOT Disposition: [facility] HOME/HOME HEALTH CARE Discharge Condition: GOOD Reason for Admission: Urosepsis, Acute Kidney Failure Consultations: Nephrology - Dr. Mccarthy GI - Dr. Ocampo Procedures: CT head, C-spine: (12/11): No acute intracranial abnormality. 11x7 mm right upper lobe opacity probably either chronic or inflammatory. Neoplasm considered less likely. Followup CT chest 3 months is recommended. CXR (12/11): No acute abnormalities Hip x-ray (12/11): No fracture or dislocation seen. Bones are osteoporotic. Pelvis x-ray (12/11): No fracture or dislocation seen. Bones are osteoporotic Renal ultrasound (12/11): Increased renal echotexture consistent with parenchymal disease CT chest, abdomen, pelvis (12/12): No acute findings. Lungs are mildly emphysematous with mild atelectasis in both lung bases. Small area of ground- glass opacity is seen in the right apex medially and left lower lobe, nonspecific.Trace pleural fluid bilaterally. No pericardial fluid.No intrathoracic adenopathy. The liver, spleen, pancreas, adrenal glands and kidneys are within normal limits. No hydronephrosis or renal calculus identified. Richey catheter is present in the urinary bladder, decompressing at. No bowel obstruction, free air, free fluid or abscess. The appendix is not identified as a discrete structure, however, no secondary findings of appendicitis are identified. Aortoiliac atherosclerosis. No pathologic lymphadenopathy in the abdomen or pelvis. Moderate upper lumbar degenerative changes. Modified barium swallow (12/12): Moderate-severe oral dysphagia characterized by decreased sensation, delayed bolus formation, delayed bolus propulsion, decreased bolus control resulting in premature spillage over BOT with thin, nectar, and honey, and multiple swallows to clear oral residue. Severe pharyngeal dysphagia characterized by delayed swallow onset (2-3 seconds), delayed hyolaryngeal elevation, decreased hyolaryngeal protraction, decreased BOT propulsion, decreased epiglottic inversion resulting in mild residues in the valleculae, decreased pharyngeal contraction resulting in mild residue along the posterior pharyngeal wall, decreased UES opening resulting in moderate residue in the pyriform sinuses, silent aspiration with thin by cup before the swallow, aspiration with nectar before the swallow, aspiration with honey residue after the swallow, and aspiration during the swallow with puree. Delayed cough ineffective in clearing aspirated material from the trachea. Patient is at HIGH RISK for aspiration pneumonia/pneumonitis. Patient is to remain NPO and consider alternate means of hydration/nutrition. Should pt/family forego feeding tube the safest diet level would be thin liquids and thin puree. KUB (12/12) enteric tube tip appears at level of the GE junction CXR (12/14): Emphysematous lungs are grossly clear. Modified barium swallow (12/16): Mild oral dysphagia characterized by decreased sensation, prolonged mastication, and lingual rocking/pumping to initiate A-P transit. Severe pharyngeal dysphagia characterized by severely decreased epiglottic inversion, moderately decreased BOT retraction, decreased pharyngeal contraction, decreased UES opening/relaxation, severe residue in the pyriform sinuses, mild-moderate residue in the valleculae and along posterior pharyngeal wall, multiple episodes of silent aspiration and aspiration with delayed/ineffective cough with thin, nectar and puree. Patient is at a HIGH risk for aspiration and aspiration pneumonia/pneumonitis and is not safe for PO intake at this time. CORNER CUTTER cannot recommend a PO diet that is safe for consumption at this time due to aforementioned deficits and high risk of aspiration and/or choking episode. Consider alternate means of hydration/nutrition. Modified barium swallow (12/23): Mild oral dysphagia characterized by decreased sensation, delayed bolus formation, delayed bolus propulsion, decreased bolus control resulting in premature spillage over BOT and multiple swallows to clear oral residue. Moderate pharyngeal dysphagia characterized by diffuse residues (valleculae, pyriforms, posterior pharyngeal wall) which cleared on spontaneous multiple swallows (3-4). No aspiration occurred during this evaluation. Flash p enetration occurred once with thin liquids. Patient exhibited worse pharyngeal residues with thicker liquids. Diet Recommendations: Mechanical soft solids, thin liquids, crushed medications Compensatory Swallow Strategies: Feed pt ONLY when fully alert, seated upright in a 90 degree angle during meals and for 45 minutes after, small bites, small sips, slow rate, multiple swallows per bite/sip, extra time between bites/sips. Penetration-Aspiration Scale: 2 - Penetration; entry of material into the larynx with clearing. Aspiration Risk: Low Problem list Sepsis secondary to UTI (cystitis), resolved Mild oral dysphagia with severe pharyngeal dysphagia, high risk of aspiration, improved Failure to thrive SHILOH on CKD, resolved Dementia, chronic Parkinson's Brief History of Present Illness: 84yo female, PMH: Parkinson's disease, dementia , hypothyroidism who presented to the ED with 4 days of progressive weakness and decreasing mental status. The patient's daughter states she has received the patient from [place] after being "up there with family and not received proper care". She was found to be in severe sepsis secondary to urinary tract infection. Hospital Course: She was treated with IV Rocephin for ~9 days and had significant improvement. Blood and urine cultures grew pansensitive E. coli. She had improvement of her mentation throughout her hospitalization. It was unclear if patient was receiving all of her medications as prescribed prior to arrival to the ED. Due to her somnolence/altered mental status she was NPO until swallow evaluation was performed. She failed initial swallow evaluation, and an NG tube was placed for medications and nutritional supplementation. She was again re-evaluated and her diet was advanced, but then it was noted she was coughing with some of her feeds. She underwent modified barium swallow on 12/16 which showed severe pharyngeal dysphagia/aspiration risk and she was made NPO. It was unclear how long patient was having some dysphasia and how quickly the patient would recover. He was felt this was in partly, if not mostly due to patient not receiving her Parkinson medication. Patient's daughter also reported that patient has had a very low appetite for the past few weeks-months, which she thinks may be attributed to decreased sense of taste. This was discussed at length with the patient's daughter, and for these reasons and for patient's poor nutritional status/appearing cachectic on admission, it was decided to proceed with PEG tube placement. Patient continued to improve after PEG tube placement. She was able to receive tube feeds without issue. On day of discharge, patient underwent repeat modified barium swallow, and had improvement of her swallowing function. Speech therapy recommended mechanical soft diet with thin liquids. This was reviewed with the patient and patient's daughter, and they are advised to continue with the PEG tube feeds to ensure adequate nutrition, and slowly transition to mechanical soft diet. Her SHILOH (Cr: 3.22): Was felt to be due to prerenal and in setting of UTI, improved to 1.31 with IV fluid hydration. Nephrology was consulted. Vital Signs/Physical Exam: Temp Pulse Resp BP Pulse Ox 97.4 F 78 16 115/57 L 98 12/24/19 08:00 12/24/19 08:00 12/24/19 08:00 12/24/19 08:00 12/24/19 08:00 General: Alert, In no apparent distress, Oriented x2 HEENT: Sclerae nonicteric Neck: Supple Respiratory: Clear to auscultation bilaterally, Normal air movement Cardiovascular: No edema, Regular rate/rhythm Gastrointestinal: Soft and benign, Non-distended, No tenderness, Other (PEG tube in place, no surrounding erythema) Musculoskeletal: No tenderness Integumentary: No rashes Neurological: Normal speech, Normal affect, Dementia (mild, chronic) Laboratory Data at Discharge: WBC 8.9 K/uL (4.3-10.9) D 12/21/19 05:29 Hgb 10.1 g/dL (12.0-15.0) L 12/21/19 05:29 Hct 30.6 % (36.0-45.0) L 12/21/19 05:29 Plt Count 182 K/uL (152-406) 12/21/19 05:29 PT 13.7 SECONDS (9.5-12.5) H 12/12/19 17:25 INR 1.16 12/12/19 17:25 APTT 25.8 SECONDS (24.3-36.9) 12/12/19 17:25 Sodium 144 mmol/L (136-145) 12/24/19 05:03 Potassium 3.8 mmol/L (3.5-5.1) 12/24/19 05:03 BUN 24 mg/dL (7-18) H 12/24/19 05:03 Creatinine 1.31 mg/dL (0.55-1.3) H 12/24/19 05:03 Glucose 87 mg/dL (74-106) 12/24/19 05:03 Uric Acid Cancelled 12/12/19 18:46 Phosphorus 2.8 mg/dL (2.5-4.9) 12/19/19 05:43 Magnesium 1.9 mg/dL (1.8-2.4) 12/21/19 05:29 Total Bilirubin 0.9 mg/dL (0.2-1.0) 12/12/19 17:25 AST 26 U/L (15-37) 12/12/19 17:25 ALT 7 U/L (12-78) L 12/12/19 17:25 Alkaline Phosphatase 130 U/L (45-117) H 12/12/19 17:25 Home Medications: Carbidopa/Levodopa [Carbidopa-Levo 25-100 mg Odt] 1.5 tab PO SEECOM 12/13/19 Carbidopa/Levodopa [Carbidopa-Levo 25-100 mg Odt] 2 tab PO SEECOM 12/13/19 Donepezil HCl 1 tab PO BEDTIME 12/13/19 Levothyroxine Sodium 1 tab PO DAILY 12/13/19 Memantine HCl [Namenda*] 1 tab PO BID 12/13/19 Mirtazapine [Remeron*] 1 tab PO BEDTIME 12/13/19 Jevity 1.5 Jamal Liquid 237 ml FT QID bot 12/24/19 Patient Discharge Instructions: get established / follow up with PCP within 1 week - further swallow evaluation in the near future. get established / follow up with neurology in the next few weeks. continue PEG tube feeds Diet: Nothing by mouth. Tube feeds as prescribed Activity: Fall precautions Followup: NONE,NONE [Primary Care Provider] - Time spent managing pt's care (in minutes): 35
[2019-12-24] MEDS: JEVITY 1.5 CAL LIQUID 1,000 ML BOT FT SCH ×2 (09:00→12:28)
[2019-12-24] MEDS: MEMANTINE HCL 10 MG TABLET PO SCH (09:34)
[2019-12-24] MEDS: LEVOTHYROXINE SOD 0.025 MG TAB PO SCH (09:34)
[2019-12-24 09:39] VITALS: O2SAT 96
[2019-12-24 12:17] VITALS: BP 119/60; TEMP 97.8
--- NOTE | 2019-12-24 12:29 | RAD REPORT ---
EXAM DESCRIPTION: RAD - Barium Swallow Modified - 12/24/2019 12:11 pm CLINICAL HISTORY: assess improvement Difficulty swallowing, dysphagia COMPARISON: Barium Swallow Modified dated 12/17/2019 TECHNIQUE: The patient was given liquid, semi-solid and solid forms of barium. Lateral view fluorosc opic imaging was performed in conjunction with speech pathology service. FINDINGS: Laryngeal penetration: cleared Pharyngeal residue in: vallecula, pyriform and posterior wall. Mild residue with thin liquid Moderate to severe with thickened liquids, cleared on multiple re-swallows (3-4) Jak cracker residue reduced to mild with thin liquid wash. Total fluoroscopy time: 3 minutes.
== END 2019-12-24 16:02 | disposition home health service (06) | DRG 871 ==
LOC: ER 15:54 → ERHOLD 19:36 → 2ND 20:10
PROVIDERS: ADMIT Internal Medicine; ATTEND Hospitalist
PROC: 0DH63UZ Insertion of Feeding Device into Stomach, Percutaneous Approach (ICD-10-PCS; principal; 2019-12-20 08:30)
DX: A41.51 Sepsis due to Escherichia coli [E. coli] (principal); E43 Unspecified severe protein-calorie malnutrition; G93.41 Metabolic encephalopathy; N17.0 Acute kidney failure with tubular necrosis; Z68.1 Body mass index [BMI] 19.9 or less, adult; N30.00 Acute cystitis without hematuria; E87.2 Acidosis; E87.0 Hyperosmolality and hypernatremia; R65.20 Severe sepsis without septic shock; E03.9 Hypothyroidism, unspecified; G20 Parkinson's disease; F02.80 Dementia in other diseases classified elsewhere, unspecified severity, without behavioral disturbance, psychotic disturbance, mood disturbance, and anxiety; E83.39 Other disorders of phosphorus metabolism; E86.0 Dehydration; E83.42 Hypomagnesemia; E87.6 Hypokalemia; I12.9 Hypertensive chronic kidney disease with stage 1 through stage 4 chronic kidney disease, or unspecified chronic kidney disease; N18.30 Chronic kidney disease, stage 3 unspecified; R40.4 Transient alteration of awareness; R13.13 Dysphagia, pharyngeal phase; R53.81 Other malaise; R62.7 Adult failure to thrive; Z79.890 Hormone replacement therapy; Z90.710 Acquired absence of both cervix and uterus; Z79.899 Other long term (current) drug therapy; Z20.828 Contact with and (suspected) exposure to other viral communicable diseases
CPT/HCPCS: 36415; 51702; 70450; 71045; 71250; 72125; 72170; 74018; 74176; 74230; 76770; 80048; 80069; 80076; 81003; 81015; 82550; 82570; 82607; 82652; 82728; 82746; 83540; 83605; 83735; 83970; 84100; 84145; 84156; 84165; 84439; 84443; 84466; 84484; 84550; 85025; 85044; 85610; 85730; 87040; 87077; 87086; 87088; 87186; 87205; 92526; 92610; 92611; 93005; 94760; 96365; 96375; 97110; 97116; 97161; 97530; 99285; J0171; J0295; J0696; J1650; J2704; J3480; J7030; J7040; J7042; J7050; J7120; J7799; U0003

== ENCOUNTER 2020-04-23 16:50 | Inpatient (IN) | payer OTHER ==
--- OUTSIDE RECORDS SUMMARY | 2020-04-23 16:53 | XMS REPORT | Continuity of Care Document ---
:1935 Author Organization [facility] Address [address] [place] [address] Care Team Providers Name Role Phone Asked, Pcp Primary Care Physician Unavailable Pepe SIMS Attending Clinician Unavailable Corey SHI C. Attending Clinician Oksana Attending Clinician Unavailable Payers Payer Name Policy Type Policy Effective Date Expiration Date Sour ce Number MEDICAREMEDICARE PART [id number] [place] A AND 00:00:00 [facility] [id number] 2002[place] LIFE AND [id number] 2019 [facility] [employer] 00:00:00 Meth odist AND [id number]/-Barb al Problems Condition Condition Condition Status Onset Resolution Last Treating Co mments Source Name Details Category Date Date Treatment Clinician Date REM sleep REM sleep Disease Active Ubaldo ston behavior behavior 02-22 [facility] disorder disorder 00:00: st 00 Psychosis Psychosis Disease Active Ubaldo ston due to due to 02 [facility] Parkinson' Parkinson' 00:00: st s disease s disease 00 PD PD Disease Active 2019-02 [place] (Parkinson (Parkinson 2-17 Me thodi 's 's 00:00: st disease) disease) 00 Dementia Dementia Disease Active 2019-02 [place] associated associated 2-17 Me [facility] with with 00:00: st Parkinson' Parkinson' 00 s disease s disease 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 Social History Social Habit Start Date Stop Date Quantity Comments Source History [facility] Meth odist Alcohol Std Drinks History [facility] Meth odist Alcohol Binge Sex Assigned At [facility] ethodist Exposure to Not sure [place] Metho dist SARS-CoV-2 (event) Tobacco use and 2020-04-12 2020-04-12 Never used [facility] ethodist exposure 00:00:00 00:00:00 Alcohol intake 2020-04-12 2020-04-12 Ex-drinker [facility] thodist 00:00:00 00:00:00 (finding) History SDOH 2020-02-07 2020-02-07 1 [place] [facility] odist Alcohol Frequency 00:00:00 00:00:00 Tobacco Comment 2020-02-07 2020-02-07 10-20 years ago [place] [facility] 00:00:00 00:00:00 Smoking Status Start Date Stop Date Source Former smoker 2020-04-12 00:00:00 2020-04-12 00:00:00 [facility] Medications Ordered Filled Start Stop Current Ordering Indication Dosage Frequency Signature Comments Components Source Medication Medication Date Date Medication? Clinician (SIG) Name Name memantine 2020- No 10mg Q.5D Take 10 mg [place] (NAMENDA) -14 03- by mouth 2 Met hodi 10 MG 13:05: 00:00 (two) st tablet 37 :00 times a day. memantine Yes 10mg Q.5D Take 1 [place] (NAMENDA) - tablet (10 Meth buddy 10 MG 00:00: mg total) st tablet 00 by mouth 2 (two) times a day. pimavanseri Yes 1{capsu QD [facility] capsule by [facility] (Nuplazid) 00:00: mouth st 34 mg 00 nightly. capsule pimavanseri 2020- No 1{capsu QD Take 1 [facility] n -20 - le} capsule by [facility] (Nuplazid) 00:00: 00:[address] 34 mg 00 :00 Medrol capsule Dose Pack Scheduling ONLY for 1 dose. carbidopa-l 2020- No 1.5{tbl Q.5D Take 1.5 [facility] evodopa 02-27 } tablets by Metho di 25-100 mg 16:00: 00:[address] per 53 :00 (two) disintegrat times a ing tablet day. carbidopa-l 2020- No 2{tbl} Q.5D Take 2 [place] evodopa 02-27 tablets by Metho di 25-100 mg 16:00: 00:[address] per 36 :00 (two) disintegrat times a ing tablet day. carbidopa-l Yes 2{tbl} Q.25D Take 2 [place] evodopa 07 tablets by Method i (SINEMET) 00:00: mouth 4 st 25-100 mg 00 (four) per tablet times a day. donepeziL 2019-02 Yes 5mg QD Take 5 mg Ubaldo stoty (ARICEPT) 5 2-17 by mouth Meth buddy MG tablet 12:59: nightly. st 44 levothyroxi 2019-02 Yes 25ug QD Take 25 Ubaldo ston ne 2-17 mcg by [facility] (SYNTHROID) 12:59: mouth st 25 mcg 44 daily. tablet mirtazapine 2019-02 Yes 15mg QD Take 15 mg [facility] (REMERON) 2-17 by mouth Method i 15 MG 12:59: nightly. st tablet 44 polyethylen 2019-02 Yes 17g Q24H Take 17 g [place] e glycol 2-17 by mouth [facility] (MIRALAX) 12:59: daily as st 17 gram 44 needed for packet constipati on. acetaminoph 2019-02 Yes 500mg Take 500 [place] en 2-17 mg by [facility] (TYLENOL) 12:59: mouth as st 500 MG 44 needed for tablet mild pain. DOCUSATE 2019-02 Yes 283mg Insert 283 [place] SODIUM RECT 2-17 mg into Metho di 12:59: the st 44 rectum. UNABLE TO 2019-02 Yes Med Name: Ubaldo hilton FIND 2-17 Emollients [facility] 12:59: Topical st 44 ointment As indicated melatonin 3 2019-02 Yes Take by Ubaldo ston mg tablet 2-17 mouth. [facility] 12:59: G-TUBE st 44 ondansetron 2019-02 Yes Take by Ubaldo rollinsty (ZOFRAN) 4 2-17 mouth [facility] mg/5 mL 12:59: once. st solution 44 G-TUBE Vital Signs Vital Name Observation Time Observation Value Comments Source Systolic blood 2020-04-11 12:59:00 100 mm[Hg] [facility] pressure Diastolic blood 2020-04-11 12:59:00 75 mm[Hg] [place] [facility] pressure Heart rate 2020-04-11 12:59:00 92 /min [facility] Body temperature 2020-04-11 12:59:00 36.28 Shahla Michael Singh Body weight 2020-04-11 12:59:00 43.455 kg [place] [facility] BMI 2020-04-11 12:59:00 16.97 kg/m2 [place] [facility] Body height 2020-02-07 12:42:00 160 cm [facility] [place] [facility] Procedures Procedure Date / Time Performed Performing Clinician Sour e XR CHEST EXTERNAL STUDY 2019-12-15 06:37:00 Liban Finchist XR ABD/PELVIC EXTERNAL 2019-12-13 17:28:00 Liban Finch [facility] STUDY [place] EXTERNAL STUDY EXAM 2019-12-13 13:17:[address] [facility] [address] CHEST ABD PEL 2019-12-13 12:26:00 Liban Finch hodist EXTERNAL STUDY US ABDOMINAL EXTERNAL 2019-12-12 18:55:00 Liban Finch [facility] STUDY XR ABD/PELVIC EXTERNAL 2019-12-12 18:47:[address] [facility] [address] HEAD EXTERNAL STUDY 2019-12-12 17:44:00 Liban Finch [facility] XR CHEST EXTERNAL STUDY 2019-12-12 17:29:00 Liban Finch Plan of Care Planned Activity Planned Date Details Comments Source Future Scheduled 2019-09-22 INFLUENZA VACCINE [facility] Test 00:00:00 [code = INFLUENZA VACCINE] Future Scheduled 2002 65+ PNEUMOCOCCAL [facility] Test 00:00:00 VACCINE (1 of 1 - PPSV23) [code = 65+ PNEUMOCOCCAL VACCINE (1 of 1 - PPSV23)] Future Scheduled 1987-07-21 SHINGLES VACCINES (#1) [place] [facility] Test 00:00:00 [code = SHINGLES VACCINES (#1)] Future Scheduled 1953 COVID-19 VACCINE (1 of [place] [facility] Test 00:00:00 2) [code = COVID-19 VACCINE (1 of 2)] Encounters Start End Encounter Admission Attending Care Care Encounter Source Date/Time Date/Time Type Type Clinicians Facility Department ID 2020-04-11 2020-04-11 Outpatient FINCH, [facility] [id number] [place] 00:00:00 00:00:[address] 2020-02-07 2020-02-07 Outpatient FINCH, [facility] [id number] [place] 00:00:00 00:00:[address] 2020-02-07 2020-02-07 Outpatient FINCH, [facility] [id number] [place] 00:00:00 00:00:[address] 2020-02-07 2020-02-07 Outpatient FINCH, [facility] [id number] [place] 00:00:00 00:00:[address] 2020-02-07 2020-02-07 Outpatient FINCH, [facility] [id number] [place] 00:00:00 00:00:[address] 2020-02-07 2020-02-07 Outpatient FINCH, [facility] [id number] [place] 00:00:00 00:00:[address] 2020-02-07 2020-02-07 Outpatient FINCH, [facility] [id number] [place] 00:00:00 00:00:[address] 2020-02-07 2020-02-07 Outpatient FINCH, [facility] [id number] [place] 00:00:00 00:00:[address] 2020-02-07 2020-02-07 Outpatient FINCH, [facility] [id number] [place] 00:00:00 00:00:[address] 2020-02-07 2020-02-07 Outpatient FINCH, [facility] [id number] [place] 00:00:00 00:00:[address] Results Test Description Test Time Test Comments Results Result [facility] e Comments XR Chest External 2020-02-07 This exam was not [facility] Study 14:58:22 acquired at a [facility] facility and has not been interpreted by a Orthodox Provider. The exam was imported into our imaging system. XR Abd/Pelvic 2020-02-07 This exam was not [place] External Study 14:57:[address] facility and has not been interpreted by a Orthodox Provider. The exam was imported into our imaging system. US Abdominal 2020-02-07 This exam was not [place] External Study 14:56:[address] [facility] facility and has not been interpreted by a Orthodox Provider. The exam was imported into our imaging system. FL External Study 2020-02-07 This exam was not [place] Exam 14:56:27 acquired at a [facility] facility and has not been interpreted by a Orthodox Provider. The exam was imported into our imaging system. CT Head External 2020-02-07 This exam was not [place] Study 14:56:04 acquired at a [facility] facility and has not been interpreted by a Orthodox Provider. The exam was imported into our imaging system. CT Chest Abdomen 2020-02-07 This exam was not [place] Pelvis External 14:55:42 acquired at a Method ist Study Orthodox facility and has not been interpreted by a Orthodox Provider. The exam was imported into our imaging system.
--- NOTE | 2020-04-23 17:33 | RAD REPORT ---
EXAM DESCRIPTION: CT - Head Brain Wo Cont - 04/23/2020 5:24 pm CLINICAL HISTORY: Alteration of awareness/confusion COMPARISON: None TECHNIQUE: Computed axial tomography of the head was obtained. IV contrast was not requested. All CT scans are performed using dose optimization technique as appropriate and may include automated exposure control or mA/KV adjustment according to patient size. FINDINGS: An intracranial bleed is not seen . The ventricles are normal in caliber. No extra-axial fluid collection is noted. Mild low-density areas within periventricular, deep and subcortical white matter likely represent isc hemic changes secondary to small vessel disease. Fluid within the sinuses/ mastoids is not seen. IMPRESSION: No acute intracranial abnormality is seen. If patient's symptoms persist MRI of the bra in would be recommended.
[2020-04-23] MEDS ORDERED: NALOXONE HCL 2 MG/2 ML VIAL ONE (17:37)
[2020-04-23 17:53] LABS: Absolute Lymphocytes (CBC) 2.4 K/uL (0.7-4.9); Basophils % 0.9 % (0-1.3); Lymphocytes % 33.6 % (15.3-44.8); MPV 8.7 fL (7.6-11.3); RBC Red Blood Cell Count 4.74 M/uL (3.86-4.86)
[2020-04-23 18:06] LABS: Protime INR 0.98
[2020-04-23 18:29] LABS: Barbiturates NEGATIVE (NEGATIVE); Benzodiazepines NEGATIVE (NEGATIVE); Cocaine NEGATIVE (NEGATIVE); METHAMPHETAM NEGATIVE (NEGATIVE); Methadone NEGATIVE (NEGATIVE); Opiates NEGATIVE (NEGATIVE); Phencyclidine NEGATIVE (NEGATIVE); THC Cannibis NEGATIVE (NEGATIVE)
[2020-04-23 18:32] LABS: ALT/SGPT 11 U/L (12-78); AST/SGOT 18 U/L (15-37); Albumin 3.6 g/dL (3.4-5.0); Alkaline Phosphatase 60 U/L (45-117); BUN Blood Urea Nitrogen 27 mg/dL (7-18); Bicarbonate 29 mmol/L (21-32); Bilirubin Direct 0.2 mg/dL (0-0.2); Bilirubin Total 0.5 mg/dL (0.2-1.0); Glucose Level 78 mg/dL (74-106); Potassium 3.9 mmol/L (3.5-5.1); Protein, Total 7.4 g/dL (6.4-8.2); Sodium Level 143 mmol/L (136-145)
--- NOTE | 2020-04-23 20:10 | ER ---
Nurse's Notes [facility] Name: Georgiana Ortiz Age: 84 yrs Sex: Female : 1935 Arrival Date: 04/23/2020 Time: 16:51 Bed 16 Private MD: Diagnosis: Altered mental status, unspecified Presentation: 04/23 17:01 Chief complaint: EMS states: EMS called by pt's caregiver for AMS, reported that pt is ph normally A\T\O, pt lethargic and only arouses to tactile stimuli, caregiver states that she did not take morning medications, VSS, systolic BP 140s, HR 70s, BGL 91, Spo2 98% and afebrile, pupils pinpoint and non-reactive, last seen normal 0800. Coronavirus screen: Client denies travel out of the [place] in the last 14 days. Ebola Screen: No symptoms or risks identified at this time. Initial Sepsis Screen: Does the patient meet any 2 criteria? Altered Mental Status. Does the patient have a suspected source of infection? No. Patient's initial sepsis screen is negative. Risk Assessment: Do you want to hurt yourself or someone else? Unable to obtain. Onset of symptoms was April 23, 2020. 17:01 Method Of Arrival: EMS: [facility] ph 17:01 Acuity: LIBIA 2 ph Triage Assessment: 19:12 General: Appears in no apparent distress. comfortable, slender, Behavior is Very dm14 sleepy. Rouses but very briefly. Historical: - PMHx: 17:51 Unable to obtain; dm14 - Immunization history:: Adult Immunizations unknown. - Social history:: Smoking status: unknown. Screenin:30 Abuse screen: unknown. Nutritional screening: No deficits noted. Tuberculosis dm14 screening: unknown. Fall Risk None identified. Assessment: 17:25 General: Appears in no apparent distress. Pt is sleeping soundly. Does rouse but dm14 immediately goes back to sleep. Behavior is drowsy. Pain: Unable to use pain scale. Patient is disoriented. Neuro: No deficits noted. 18:30 Reassessment: Pt unchanged. does rouse with stimulation but briefly. dm14 20:00 General: Appears in no apparent distress. comfortable, slender, Behavior is calm, em cooperative. Neuro: Neuro: Level of Consciousness is awake, obeys commands, Oriented to person. Respiratory: Airway is patent Respiratory effort is even, unlabored, Respiratory pattern is regular, symmetrical. Derm: Skin is fragile, is thin, Skin is pink, warm \T\ dry. 20:30 Reassessment: Patient appears in no apparent distress at this time. No changes from em previously documented assessment. 22:36 Reassessment: No changes from previously documented assessment. em Vital Signs: 17:00 BP 147 / 85; Pulse 85; Resp 18; Pulse Ox 100% ; dm14 17:01 BP 147 / 85; Pulse 84; Resp 14; Temp 97.8; Pulse Ox 99% on R/A; ph 17:30 BP 143 / 84; Pulse 84; Resp 18; Pulse Ox 99% ; dm14 18:15 BP 140 / 89; Pulse 92; Resp 18; Pulse Ox 100% ; dm14 19:00 BP 122 / 77; Pulse 92; Resp 18; Pulse Ox 99% ; dm14 ED Course: 16:51 Patient arrived in ED. am2 17:06 Anand Cali MD is Attending Physician. kdr 17:09 Triage completed. ph 17:09 Arm band placed on Patient placed in an exam room, on a stretcher, on manager hvac, ph on pulse oximetry. 17:25 Torrie Reyes, ALLISON is Primary Nurse. dm14 18:04 Urine collected: Richey catheter specimen, cloudy, umair colored. Richey cath inserted, jp3 using sterile technique, 18 Fr., by ne, balloon inflated, to gravity drainage, urine specimen collected. returned cloudy urine. Patient tolerated well. 18:22 Legal drug screen obtained per protocol. jp3 18:30 Patient has correct armband on for positive identification. Bed in low position. Side dm14 rails up X2. 18:30 Inserted saline lock: 20 gauge in right forearm, using aseptic technique. dm14 19:39 uJlius Wooten PA [facility] jr8 20:00 No provider procedures requiring assistance completed. Inserted saline lock: 22 gauge em in right forearm, using aseptic technique. Blood collected. 20:09 Bernard Rivera MD is Hospitalizing Provider. jr8 22:36 Patient admitted, IV remains in place. em Administered Medications: 17:30 Drug: NARcan 0.05 mg Route: IVP; Site: right forearm; dm14 17:45 Drug: NARcan 0.05 mg Route: IVP; Site: right forearm; dm14 20:38 Drug: Rocephin 1 grams Route: IV; Rate: calculated rate; Site: right forearm; em 22:12 Follow up: Response: No adverse reaction; IV Status: Completed infusion; IV Intake: 10mlem 20:38 Drug: NS 0.9% 500 ml Route: IV; Rate: bolus; Site: right forearm; em 22:12 Follow up: IV Status: Completed infusion; IV Intake: 500ml em 22:12 Not Given (Physician Discretion): NS 0.9% 1000 ml IV at 75 ml/hr continuous em 22:12 Drug: D5-1/2 NS 1000 ml Route: IV; Rate: 75 ml/hr; Site: right forearm; em Intake: 22:12 IV: 10ml; Total: 10ml. em 22:12 IV: 500ml; Total: 510ml. em Outcome: 20:09 Decision to Hospitalize by Provider. jrClaudio 22:35 Admitted to Med/surg accompanied by tech, via wheelchair, room 212, Report called to calvin Abdi RN 22:35 Condition: good 22:35 Instructed on the need for admit. 22:37 Patient left the ED. em Signatures: Anand Cali MD MD kdr Munoz, Edgar RN RN Julius Kelly PA PA jrFauzia Pacheco RN RN Brittany Rodriguez am2 Beltran Kaiser jp3 Torrie Reyes RN RN dm14
--- NOTE | 2020-04-23 20:10 | EDPHYS ---
Physician Documentation [facility] Name: Georgiana Ortiz Age: 84 yrs Sex: Female : 1935 Arrival Date: 04/23/2020 Time: 16:51 Bed 16 Private MD: ED Physician Anand Cali HPI: 04/24 07:12 This 84 yrs old Female presents to ER via EMS with complaints of Altered kdr Mental Status. 07:12 The patient presents with confusion, decreased responsiveness. Onset: The kdr symptoms/episode began/occurred this morning, at an unknown time. Possible causes: CVA or TIA, low blood sugar, sepsis. Associated signs and symptoms: The patient has no apparent associated signs or symptoms. Current symptoms: In the emergency department the patient's symptoms have improved, mildly. Patient's baseline: Neuro: alert and fully oriented, Motor: no deficits. It is unknown whether or not the patient has had similar symptoms in the past. It is unknown whether or not the patient has recently seen a physician. The patient was discovered by family poorly alert and lethargic. Historical: - PMHx: 04/23 17:51 Unable to obtain; dm14 - Immunization history:: Adult Immunizations unknown. - Social history:: Smoking status: unknown. ROS: 04/24 07:12 Constitutional: Unnable to obtain due to AMS kdr Unable to obtain ROS due to altered mental status, baseline dementia. Exam: 07:12 Constitutional: This is a well developed, well nourished patient who is somnolent, kdr hard to engage but arouses with mild difficulty, but in no acute distress. Head/Face: Normocephalic, atraumatic. Eyes: Pupils equal round and reactive to light, extra-ocular motions intact. Lids and lashes normal. Conjunctiva and sclera are non-icteric and not injected. Cornea within normal limits. Periorbital areas with no swelling, redness, or edema. Neck: Trachea midline, no thyromegaly or masses palpated, and no cervical lymphadenopathy. Supple, full range of motion without nuchal rigidity, or vertebral point tenderness. No Meningismus. Chest/axilla: Normal chest wall appearance and motion. Nontender with no deformity. No lesions are appreciated. Cardiovascular: Regular rate and rhythm with a normal S1 and S2. No gallops, murmurs, or rubs. Normal PMI, no JVD. No pulse deficits. Respiratory: Lungs have equal breath sounds bilaterally, clear to auscultation and percussion. No rales, rhonchi or wheezes noted. No increased work of breathing, no retractions or nasal flaring. Abdomen/GI: Soft, non-tender, with normal bowel sounds. No distension or tympany. No guarding or rebound. No evidence of tenderness throughout. Back: No spinal tenderness. No costovertebral tenderness. Full range of motion. Skin: Warm, dry with normal turgor. Normal color with no rashes, no lesions, and no evidence of cellulitis. MS/ Extremity: Pulses equal, no cyanosis. Neurovascular intact. Full, normal range of motion. 07:12 Neuro: Orientation: unable to test, Mentation: slow to respond, confused, somnolent, responsive to pain, Cranial nerves: no acute changes, Motor: moves all fours, Sensation: no obvious gross deficits. Vital Signs: 04/23 17:00 BP 147 / 85; Pulse 85; Resp 18; Pulse Ox 100% ; dm14 17:01 BP 147 / 85; Pulse 84; Resp 14; Temp 97.8; Pulse Ox 99% on R/A; ph 17:30 BP 143 / 84; Pulse 84; Resp 18; Pulse Ox 99% ; dm14 18:15 BP 140 / 89; Pulse 92; Resp 18; Pulse Ox 100% ; dm14 19:00 BP 122 / 77; Pulse 92; Resp 18; Pulse Ox 99% ; dm14 Procedures: 19:42 Lumbar Puncture: Patient placed in left lateral decubitus position. Prepped with [facility] Betadine. Draped using sterile technique. Collected 8 ml's of clear fluid. Sample sent to lab. Puncture site dressed with band aid, Patient tolerated well. MDM: 19:39 Patient medically screened. [facility] 19:43 Data reviewed: vital signs, nurses notes, lab test result(s), EKG, radiologic studies, [facility] CT scan, plain films. Data interpreted: Pulse oximetry: on room air is 99 %. Interpretation: normal. Counseling: I had a detailed discussion with the patient and/or guardian regarding: the historical points, exam findings, and any diagnostic results supporting the discharge/admit diagnosis, lab results, radiology results, the need for further work-up and treatment in the hospital. 04/23 17:09 Order name: Acetaminophen kdr 04/23 17:09 Order name: Basic Metabolic Panel kdr 04/23 17:09 Order name: CBC with Diff kdr 04/23 17:09 Order name: ETOH Level kdr 04/23 17:09 Order name: Hepatic Function kdr 04/23 17:09 Order name: PT-INR kdr 04/23 17:09 Order name: Ptt, Activated kdr 04/23 17:09 Order name: Salicylate kdr 04/23 17:09 Order name: Urine Drug Screen kdr 04/23 17:10 Order name: Acetaminophen Level; Complete Time: 19:39 EDMS 04/23 17:10 Order name: Basic Metabolic Panel; Complete Time: 19:39 EDMS 04/23 17:10 Order name: CBC with Automated Diff; Complete Time: 18:33 EDMS 04/23 17:10 Order name: Alcohol Serum/Plasma; Complete Time: 18:33 EDMS 04/23 17:10 Order name: Liver (Hepatic) Function; Complete Time: 19:39 EDMS 04/23 17:10 Order name: Protime (+INR); Complete Time: 18:33 EDMS 04/23 17:10 Order name: PTT, Activated Partial Thromb; Complete Time: 18:33 EDMS 04/23 17:10 Order name: Salicylates Level; Complete Time: 19:39 EDMS 04/23 18:01 Order name: Glucose, Ancillary Testing; Complete Time: 18:33 EDMS 04/23 18:19 Order name: Urine Dipstick--Ancillary (enter results) em1 04/23 18:29 Order name: Urine Drug Screen; Complete Time: 18:33 EDMS 04/23 18:33 Order name: Procalcitonin kdr 04/23 18:33 Order name: Lactate kdr 04/23 18:33 Order name: Blood Culture Adult (2) kdr 04/23 18:33 Order name: Urine Culture [facility] 04/23 19:40 Order name: CSF Bacterial Antigens (tube 1) 8 04/23 19:40 Order name: Csf Culture 8 04/23 19:40 Order name: Fluid Cell Count,Body 8 04/23 19:40 Order name: Spinal Fluid Profile 8 04/23 20:10 Order name: Urine Microscopic Only 8 04/23 20:40 Order name: COVID-19 : Document "Date of Symptom Onset" if Symptomatic. bb 04/23 17:09 Order name: EKG; Complete Time: 17:10 kdr 04/23 17:09 Order name: IV Saline Lock; Complete Time: 19:08 kdr 04/23 17:09 Order name: Labs collected and sent; Complete Time: 19:08 kdr 04/23 17:09 Order name: Urine Dipstick-Ancillary (obtain specimen); Complete Time: 18:13 kdr 04/23 17:09 Order name: CT Head Brain wo Cont kdr 04/23 17:33 Order name: CT; Complete Time: 18:33 EDMS 04/23 18:33 Order name: Richey; Complete Time: 19:10 kdr 04/23 18:34 Order name: Lumbar Puncture Setup; Complete Time: 19:14 kdr 04/23 19:40 Order name: LP Consents; Complete Time: 19:45 jr8 04/23 20:42 Order name: CSF SPECIMEN; Complete Time: 21:05 EDMS 04/23 20:47 Order name: Body Fluid Cell Count; Complete Time: 21:05 EDMS 04/23 20:50 Order name: CORONAVIRUS EDMS 04/23 20:56 Order name: Lactate; Complete Time: 21:05 EDMS 04/23 21:14 Order name: CSF Bacterial Antigens (Tube 1; Complete Time: 22:24 EDMS 04/23 21:16 Order name: Urine Dipstick-Ancillary; Complete Time: 22:24 EDMS 04/23 21:19 Order name: Procalcitonin; Complete Time: 22:24 EDMS 04/23 21:21 Order name: CSF Culture EDMS 04/23 21:34 Order name: SARS-COV-2 RT PCR; Complete Time: 22:24 EDMS 04/23 21:35 Order name: Urine Microscopic Only; Complete Time: 22:24 EDMS Administered Medications: 17:30 Drug: NARcan 0.05 mg Route: IVP; Site: right forearm; dm14 17:45 Drug: NARcan 0.05 mg Route: IVP; Site: right forearm; dm14 20:38 Drug: Rocephin 1 grams Route: IV; Rate: calculated rate; Site: right forearm; em 22:12 Follow up: Response: No adverse reaction; IV Status: Completed infusion; IV Intake: 10mlem 20:38 Drug: NS 0.9% 500 ml Route: IV; Rate: bolus; Site: right forearm; em 22:12 Follow up: IV Status: Completed infusion; IV Intake: 500ml em 22:12 Not Given (Physician Discretion): NS 0.9% 1000 ml IV at 75 ml/hr continuous em 22:12 Drug: D5-1/2 NS 1000 ml Route: IV; Rate: 75 ml/hr; Site: right forearm; em Disposition: 04/24 07:20 Co-signature as Attending Physician, Anand Cali MD I agree with the assessment and kdr plan of care. Disposition: 04/23/20 20:09 Hospitalization ordered by Bernard Rivera for Observation. Preliminary diagnosis is Altered mental status, unspecified. - Bed requested for Telemetry/MedSurg (observation). - Status is Observation. em - Condition is Fair. - Problem is new. - Symptoms are unchanged. Signatures: Dispatcher [employer] Komal Patel, RN RN Anand Schulz MD MD [facility] Dawson Gongora RN RN em Julius Wooten PA PA jr8 Demian Olson, DRAWING HAND-C DRAWING HAND-Cla1 Torrie Reyes, RN RN dm14 Corrections: (The following items were deleted from the chart) 04/23 19:40 19:40 LP Setup ordered. jr8 jr8 20:44 20:09 Hospitalization Ordered by Bernard Rivera MD for Inpatient Admission. Preliminary jr8 diagnosis is Altered mental status, unspecified. Bed requested for Telemetry/MedSurg (Inpatient). Status is Inpatient Admission. Condition is Fair. Problem is new. Symptoms are unchanged. jr8 21:48 20:44 04/23/2020 20:09 Hospitalization Ordered by Bernard Rivera MD for Observation. dw Preliminary diagnosis is Altered mental status, unspecified. Bed requested for Telemetry/MedSurg (observation). Status is Observation. Condition is Fair. Problem is new. Symptoms are unchanged. jr8 22:37 21:48 04/23/2020 20:09 Hospitalization Ordered by Bernard Rivera MD for Observation. em Preliminary diagnosis is Altered mental status, unspecified. Bed requested for Telemetry/MedSurg (observation). Status is Observation. Condition is Fair. Problem is new. Symptoms are unchanged. dw
[2020-04-23] MEDS ORDERED: CEFTRIAXONE/SWI 1gm 1 GM/10 ML SYR ONE (20:22)
[2020-04-23] MEDS ORDERED: NA CHLORIDE 0.9% 1,000 ML ONE (20:22)
[2020-04-23 20:40] LABS: Appearance CLEAR (CLEAR); Body Fluid Source CSF; Color of fluid Colorless (COLORLESS); Fluid Total Volume 8 ml
[2020-04-23 20:41] LABS: Body Fluid WBC 1 /mm^3
[2020-04-23 20:46] LABS: Body Fluid Source CSF; Color of fluid Colorless (COLORLESS)
[2020-04-23 20:47] LABS: Appearance CLEAR (CLEAR); Body Fluid WBC 0 /mm^3
[2020-04-23 21:01] LABS: CSF Glucose 65 mg/dL (40-70)
--- NOTE | 2020-04-23 21:12 | P.HP ---
Certification for Inpatient Patient admitted to: Observation With expected LOS: <2 Midnights Patient will require the following post-hospital care: None Practitioner: I am a practitioner with admitting privileges, knowledge of patient current condition, hospital course, and medical plan of care. Services: Services provided to patient in accordance with Admission requirements found in Title 42 Section 412.3 of the Code of Federal Regulations <Demian Olson - Last Filed: 04/23/20 21:07> Patient History Date of Service: 04/23/20 Reason for admission: Metabolic encephalopathy History of Present Illness: 84-year-old female with history of Parkinson's, dementia, hypothyroidism presents emergency department for altered mental status. Patient lives at home with her daughter and son-in-law, has home health, physical therapy. Patient was found to be unresponsive to verbal stimulus by family when trying to administer her daily medications and 911 was called. Upon arrival to the emergency department patient was extremely lethargic only responsive to tactile stimulus, patient was worked up in the emergency department, labs essentially unremarkable, urinalysis significant for 1+ leukocytes. Urine microscopic analysis pending with urine culture. Patient with admission in November of last year for urosepsis with pain sensitive E. coli on the culture. Vital signs stable, LP was performed in the emergency department and only shows mildly elevated total protein. Patient does not appear septic, vital signs within normal limits. When I saw the patient in the ER she was awake, alert, mildly agitated. Patient was oriented times 1-2, family reports that her baseline status is that she converses with them well but is sometimes unaware of the date and other details. Mental status does seem to be improving but is not back at baseline, ED provider wishes to admit under observation for further evaluation and management. - Past Medical/Surgical History Diabetic: No -: parkinson's disease -: dementia -: alzheimers -: Hypothyroidism -: Dysphagia status post PEG insertion and removal -: hysterectomy -: PEG tube insertion/removal Psychosocial/ Personal History: Patient lives at home with her daughter and son-in-law has home health, physical therapy. - Family History Sister -: Lung disease, Cancer Notes: lung CA - Social History Smoking Status: Never smoker Alcohol use: No CD- Drugs: No Caffeine use: No Place of Residence: Home <Demian Olson - Last Filed: 04/23/20 21:07> Date of Service: 04/24/20 <Bernard Rivera - Last Filed: 04/24/20 12:14> Allergies No Known Allergies Allergy (Verified 12/13/19 02:31) Home Medications: Carbidopa/Levodopa [Carbidopa-Levo 25-100 mg Odt] 1.5 tab PO SEECOM 12/13/19 Carbidopa/Levodopa [Carbidopa-Levo 25-100 mg Odt] 2 tab PO SEECOM 12/13/19 Donepezil HCl 1 tab PO BEDTIME 12/13/19 Levothyroxine Sodium 1 tab PO DAILY 12/13/19 Memantine HCl [Namenda*] 1 tab PO BID 12/13/19 Mirtazapine [Remeron*] 1 tab PO BEDTIME 12/13/19 Jevity 1.5 Jamal Liquid 237 ml FT QID bot 12/24/19 Review of Systems is unable to be obtained <Demian Olson - Last Filed: 04/23/20 21:07> Physical Examination - Physical Exam General: Alert, Oriented x1, Confused HEENT: Normocephalic, Other (Mucous membranes dry) Neck: Supple Respiratory: Clear to auscultation bilaterally, Normal air movement Cardiovascular: Regular rate/rhythm, Normal S1 S2 Capillary refill: <2 Seconds Gastrointestinal: Normal bowel sounds, Soft and benign Musculoskeletal: No erythema, No tenderness, No warmth Integumentary: No tenderness/swelling, No erythema, No warmth Neurological: Normal speech, Normal strength at 5/5 x4 extr, Normal tone, Other (Patient confused, agitated), Dementia <Demian Olson - Last Filed: 04/23/20 21:07> - Studies Laboratory Data (last 24 hrs) 04/24/20 05:09: Sodium 144, Potassium 3.7, BUN 22 H, Creatinine 1.04, Glucose 104, Magnesium 2.2, Total Bilirubin 0.4, AST 15, ALT 11 L, Alkaline Phosphatase 48 04/24/20 05:09: WBC 7.00, Hgb 12.1, Hct 37.6, Plt Count 108 L D 04/23/20 17:44: PT 11.3, INR 0.98, APTT 26.5 04/23/20 17:44: WBC 7.20, Hgb 13.6, Hct 42.0, Plt Count 181 04/23/20 17:44: Sodium 143, Potassium 3.9, BUN 27 H, Creatinine 1.17, Glucose 78, Total Bilirubin 0.5, AST 18, ALT 11 L, Alkaline Phosphatase 60 Microbiology Data (last 24 hrs): 04/23/20 20:15 Blood - Blood Anaerobic Blood Culture - Final 04/23/20 19:45 Cerebral Spinal Fluid Gram Stain - Final 04/23/20 19:45 Cerebral Spinal Fluid CSF Bacterial Antigens (Tube 1) - Final <Bernard Rivera - Last Filed: 04/24/20 12:14> Assessment and Plan - Plan Assessment Metabolic encephalopathy likely secondary to UTI Parkinson's Hypothyroidism Dementia History of dysphagia Plan Metabolic encephalopathy likely secondary to UTI: Urine culture obtained, patient with history of tyson-sensitive E. coli. Continue Rocephin, gentle hydration at this time. Patient's blood sugar noted to be 70 on lab, continue with D5 half NS overnight as patient does appear dry as well. Mental status appears to be improving, patient has home health, physical therapy, family at home. DVT prophylaxis Lovenox 40 mg subcutaneous once daily. Parkinson's: Obtain and continue home medications if patient passes swallow screen. Hypothyroidism: Thyroid panel with morning labs, continue home med. Dementia: Fall precautions, continue home meds. History of dysphagia: Patient was discharged from our facility in November with PEG tube, this was reportedly removed approximately 2 weeks ago. Patient has been tolerating p.o. well, at this time patient confused, will have swallow screen performed, if she passes she can continue with heart healthy diet if not she will need speech evaluation. Discharge Plan: Home Plan to discharge in: 24 Hours - Advance Directives Does patient have a Living Will: No Does patient have a Durable POA for Healthcare: No - Code Status/Comfort Care Code Status Assessed: Yes (Full code) Critical Care: No Time Spent Managing Pts Care (In Minutes): 55 <Demian Olson - Last Filed: 04/23/20 21:07> - Plan Plan of care reviewed as noted above by Demian Olson, and I agree with the management plan as noted above. <Bernard Rivera - Last Filed: 04/24/20 12:14>
[2020-04-23 21:16] LABS: Urine Blood TRACE (NEG); Urine Glucose NEGATIVE (NEG); Urine Protein NEGATIVE (NEG)
[2020-04-23 21:34] LABS: Urine Bacteria >50 /HPF (<20); Urine RBC <5 /HPF (NONE SEEN)
[2020-04-23] MEDS ORDERED: D5 0.45 NS 1,000 ML IV ONE (22:00)
[2020-04-23] MEDS ORDERED: ACETAMINOPHEN 500 MG TAB PO PRN (22:27)
[2020-04-23] MEDS: D5 0.45 NS 1,000 ML IV SCH (22:27)
[2020-04-23] MEDS ORDERED: ONDANSETRON 4 MG/2 ML VIAL IV PRN (22:27)
[2020-04-24 05:33] LABS: Absolute Lymphocytes (CBC) 1.9 K/uL (0.7-4.9); Basophils % 0.6 % (0-1.3); Hematocrit 37.6 % (36.0-45.0); Lymphocytes % 26.5 % (15.3-44.8); MPV 9.1 fL (7.6-11.3); RBC Red Blood Cell Count 4.23 M/uL (3.86-4.86)
[2020-04-24 06:08] LABS: Bilirubin Total 0.4 mg/dL (0.2-1.0); Magnesium 2.2 mg/dL (1.8-2.4); Potassium 3.7 mmol/L (3.5-5.1); Protein, Total 6.1 g/dL (6.4-8.2)
[2020-04-24 06:15] LABS: Thyroid Stimulating Hormone 4.75 uIU/mL (0.360-3.740)
[2020-04-24] MEDS ORDERED: KCL 20 MEQ/100 mL IVPB 20 MEQ/100 ML BAG IV SCH (09:00)
[2020-04-24] MEDS: ENOXAPARIN 40 MG/0.4 ML SQ SCH (09:53)
[2020-04-24] MEDS: CEFTRIAXONE/SWI 1gm 1 GM/10 ML SYR IV SCH (09:53)
[2020-04-24 10:29] VITALS: BMI 15.4
[2020-04-24] MEDS: D5 0.45 NS 1,000 ML IV SCH (11:47)
--- NOTE | 2020-04-24 12:16 | P.PN ---
Subjective Date of Service: 04/24/20 Chief Complaint: Metabolic encephalopathy Subjective: Improving (More alert, oriented x2, denies any pains, reports she still feels tired/fatigue, did not sleep well last night, still seems to have some confusion) Review of Systems 10-point ROS is otherwise unremarkable Physical Examination - Vital Signs Temperature: 98.0 F Blood Pressure: 164/74 Pulse: 71 Respirations: 18 Pulse Ox (%): 96 - Studies Laboratory Data (last 24 hrs) 04/24/20 05:09: Sodium 144, Potassium 3.7, BUN 22 H, Creatinine 1.04, Glucose 104, Magnesium 2.2, Total Bilirubin 0.4, AST 15, ALT 11 L, Alkaline Phosphatase 48 04/24/20 05:09: WBC 7.00, Hgb 12.1, Hct 37.6, Plt Count 108 L D 04/23/20 17:44: PT 11.3, INR 0.98, APTT 26.5 04/23/20 17:44: WBC 7.20, Hgb 13.6, Hct 42.0, Plt Count 181 04/23/20 17:44: Sodium 143, Potassium 3.9, BUN 27 H, Creatinine 1.17, Glucose 78, Total Bilirubin 0.5, AST 18, ALT 11 L, Alkaline Phosphatase 60 Microbiology Data (last 24 hrs): 04/23/20 20:15 Blood - Blood Anaerobic Blood Culture - Final 04/23/20 19:45 Cerebral Spinal Fluid Gram Stain - Final 04/23/20 19:45 Cerebral Spinal Fluid CSF Bacterial Antigens (Tube 1) - Final Assessment & Plan Physician Review Additional Text: Physical Exam General: Alert, Oriented x2, Confused HEENT: Normocephalic, sclera anicteric Respiratory: Clear to auscultation bilaterally, Normal air movement Cardiovascular: Regular rate/rhythm, Normal S1 S2 Gastrointestinal: soft, NTND, no rebound Ext: no edema, no tenderness, no rash Neurological: Normal speech, strenght ~5/5, fatigued on exam Problem list: Metabolic encephalopathy secondary to UTI, cystitis Parkinson's Hypothyroidism Dementia History of dysphagia -UA positive, awaiting urine culture; h/o tyson-sensitive e.coli -continue Rocephin, gentle IV fluids -pass swallow screen, advance diet -restart home medications, important to receive her Parkinson's medications -improved, but still fatigued/ general weakness -PT to eval anticipate dc home tomorrow - has home health / home PT Time Spent Managing Pts Care (In Minutes): 40
[2020-04-24] MEDS ORDERED: JEVITY 1.5 CAL LIQUID 1,000 ML BOT FT SCH (13:00)
[2020-04-24] MEDS: CARBIDOPA/LEVODOPA 25/100 TAB PO SCH ×3 (15:55→20:36)
[2020-04-24] MEDS: Pimavanserin Tartrate [Nuplazid] 34 MG Capsule PO SCH (15:57)
[2020-04-24] MEDS ORDERED: CARBIDOPA/LEVODOPA 25/100 TAB PO SCH (16:00)
[2020-04-24] MEDS: MEMANTINE HCL 10 MG TABLET PO SCH (20:35)
[2020-04-24] MEDS: MIRTAZAPINE 15 MG TAB PO SCH (20:35)
[2020-04-24] MEDS: ENSURE ENLIVE 237 ML CAN PO SCH (20:36)
[2020-04-24] MEDS: DONEPEZIL HCL 5 MG TAB PO SCH (20:38)
[2020-04-25] MEDS: D5 0.45 NS 1,000 ML IV SCH (03:07)
[2020-04-25 05:27] LABS: Absolute Lymphocytes (CBC) 1.7 K/uL (0.7-4.9); Basophils % 0.9 % (0-1.3); Hematocrit 35.7 % (36.0-45.0); Lymphocytes % 31.1 % (15.3-44.8); MPV 8.5 fL (7.6-11.3); RBC Red Blood Cell Count 4.02 M/uL (3.86-4.86)
[2020-04-25] MEDS: LEVOTHYROXINE SOD 0.025 MG TAB PO SCH (06:17)
[2020-04-25] MEDS ORDERED: CARBIDOPA/LEVODOPA 25/100 TAB PO SCH (06:30)
[2020-04-25] MEDS: ENSURE ENLIVE 237 ML CAN PO SCH ×2 (09:00→20:24)
[2020-04-25] MEDS: CARBIDOPA/LEVODOPA 25/100 TAB PO SCH ×4 (09:00→20:23)
[2020-04-25] MEDS: ENOXAPARIN 40 MG/0.4 ML SQ SCH (09:51)
[2020-04-25] MEDS: VITAMIN D 1000 UNIT TAB PO SCH (09:51)
[2020-04-25] MEDS: CEFTRIAXONE/SWI 1gm 1 GM/10 ML SYR IV SCH (09:52)
[2020-04-25] MEDS: MEMANTINE HCL 10 MG TABLET PO SCH ×2 (09:53→20:24)
--- NOTE | 2020-04-25 11:32 | P.PN ---
Subjective Date of Service: 04/25/20 Chief Complaint: Metabolic encephalopathy Subjective: No new changes (alert, oriented to self this morning. no significant events overnight. Patient confused, unsure where she is, does not recall recent events. denies any SOB, chest pain, abd pain, numbness/tingling) Review of Systems 10-point ROS is otherwise unremarkable Physical Examination - Vital Signs Temperature: 97.8 F Blood Pressure: 124/63 Pulse: 80 Respirations: 15 Pulse Ox (%): 97 - Studies Microbiology Data (last 24 hrs): 04/23/20 19:45 Cerebral Spinal Fluid Gram Stain - Final 04/23/20 18:04 Catheterized Urine [place] Count - Final >100,000 CFU/ML. 04/23/20 18:04 Catheterized Urine - Final Escherichia Coli 04/23/20 20:15 Blood - Blood Anaerobic Blood Culture - Final Assessment & Plan Physician Review Additional Text: Physical Exam General: Alert, Oriented x2, Confused HEENT: Normocephalic, sclera anicteric Respiratory: Clear to auscultation bilaterally, Normal air movement Cardiovascular: Regular rate/rhythm, Normal S1 S2 Gastrointestinal: soft, NTND, no rebound Ext: no edema, no tenderness, no rash Neurological: Normal speech Problem list: Metabolic Encephalopathy secondary to UTI, cystitis Parkinson's Hypothyroidism Dementia History of dysphagia -UA positive, Urine Culture: E.coli, sensitive to rocephin -continue Rocephin, dc IVF this afternoon -passed swallow screen, tolerating diet -restarted home medications, important to receive her Parkinson's medications -improved, but still fatigued/ general weakness and with confusion -PT evaluated -recommend home PT anticipate dc home tomorrow - has home health / will need home PT again (daughter states she was recently discharge) will discuss with daughter today Time Spent Managing Pts Care (In Minutes): 35
[2020-04-25] MEDS: Pimavanserin Tartrate [Nuplazid] 34 MG Capsule PO SCH (17:00)
[2020-04-25] MEDS: DONEPEZIL HCL 5 MG TAB PO SCH (20:23)
[2020-04-25] MEDS: MIRTAZAPINE 15 MG TAB PO SCH (20:24)
[2020-04-26] MEDS: LEVOTHYROXINE SOD 0.025 MG TAB PO SCH (05:39)
[2020-04-26 06:02] LABS: Magnesium 2.2 mg/dL (1.8-2.4); Potassium 3.7 mmol/L (3.5-5.1)
[2020-04-26] MEDS: CEFTRIAXONE/SWI 1gm 1 GM/10 ML SYR IV SCH (09:00)
[2020-04-26] MEDS ORDERED: POTASSIUM 25 MEQ EFFERV TAB PO ONE (09:00)
[2020-04-26] MEDS: ENSURE ENLIVE 237 ML CAN PO SCH ×2 (09:00→20:46)
[2020-04-26] MEDS: CARBIDOPA/LEVODOPA 25/100 TAB PO SCH ×4 (09:18→20:46)
[2020-04-26] MEDS: MEMANTINE HCL 10 MG TABLET PO SCH ×2 (09:19→20:45)
[2020-04-26] MEDS: ENOXAPARIN 40 MG/0.4 ML SQ SCH (09:19)
[2020-04-26] MEDS: VITAMIN D 1000 UNIT TAB PO SCH (09:19)
--- NOTE | 2020-04-26 12:24 | P.PN ---
Subjective Date of Service: 04/26/20 Chief Complaint: Metabolic encephalopathy Subjective: Improving (No significant events overnight, without complaints today. Remains confused and alert oriented to self only. tolerating PO without issue) Review of Systems 10-point ROS is otherwise unremarkable Physical Examination - Vital Signs Temperature: 98.0 F Blood Pressure: 132/68 Pulse: 80 Respirations: 17 Pulse Ox (%): 96 - Studies Microbiology Data (last 24 hrs): 04/23/20 19:45 Cerebral Spinal Fluid Gram Stain - Final 04/23/20 18:04 Catheterized Urine [place] Count - Final >100,000 CFU/ML. 04/23/20 18:04 Catheterized Urine - Final Escherichia Coli Assessment & Plan Physician Review Additional Text: Physical Exam General: Alert, Oriented x1, Confused HEENT: Normocephalic, sclera anicteric Respiratory: Clear to auscultation bilaterally, Normal air movement Cardiovascular: Regular rate/rhythm, Normal S1 S2 Gastrointestinal: soft, NTND, no rebound Ext: no edema, no tenderness Neurological: Normal speech Problem list: Metabolic Encephalopathy secondary to UTI, cystitis Parkinson's Hypothyroidism Dementia History of dysphagia -UA positive, Urine Culture: E.coli, sensitive to rocephin -continue Rocephin -passed swallow screen, tolerating diet -restarted home medications, important to receive her Parkinson's medications -improved, but still fatigued/ general weakness and with confusion. will meet with patient and daughter this afternoon. Seems patient still with some encephalopathy -PT evaluated -recommend home PT anticipate dc home in next 24hrs - has home health / will need home PT again (daughter states she was recently discharged) Time Spent Managing Pts Care (In Minutes): 35
[2020-04-26] MEDS: Pimavanserin Tartrate [Nuplazid] 34 MG Capsule PO SCH (16:54)
[2020-04-26] MEDS: DONEPEZIL HCL 5 MG TAB PO SCH (20:46)
[2020-04-26] MEDS: MIRTAZAPINE 15 MG TAB PO SCH (20:46)
[2020-04-27] MEDS: LEVOTHYROXINE SOD 0.025 MG TAB PO SCH (05:40)
[2020-04-27 06:30] LABS: Potassium 3.8 mmol/L (3.5-5.1)
[2020-04-27] MEDS ORDERED: POTASSIUM 25 MEQ EFFERV TAB PO ONE (09:00)
[2020-04-27 10:20] LABS: Absolute Lymphocytes (CBC) 1.2 K/uL (0.7-4.9); Basophils % 0.8 % (0-1.3); Hematocrit 39.4 % (36.0-45.0); Lymphocytes % 18.4 % (15.3-44.8); MPV 8.6 fL (7.6-11.3); RBC Red Blood Cell Count 4.48 M/uL (3.86-4.86)
[2020-04-27] MEDS: ENOXAPARIN 40 MG/0.4 ML SQ SCH (10:57)
[2020-04-27] MEDS: MEMANTINE HCL 10 MG TABLET PO SCH ×2 (10:58→20:50)
[2020-04-27] MEDS: CARBIDOPA/LEVODOPA 25/100 TAB PO SCH ×4 (10:58→20:50)
[2020-04-27] MEDS: VITAMIN D 1000 UNIT TAB PO SCH (10:58)
[2020-04-27] MEDS: CEFTRIAXONE/SWI 1gm 1 GM/10 ML SYR IV SCH (10:59)
[2020-04-27] MEDS: ENSURE ENLIVE 237 ML CAN PO SCH ×2 (11:00→20:51)
--- NOTE | 2020-04-27 11:24 | P.PN ---
Subjective Date of Service: 04/27/20 Chief Complaint: Metabolic encephalopathy Subjective: Other (remains with confusion, somewhat more oriented today it seems. denies any pain / SOB, nausea/vomiting confused to where she is at times. enriquez removed yesterday. nursing reports patient has been voiding) Review of Systems 10-point ROS is otherwise unremarkable Physical Examination - Vital Signs Temperature: 98.2 F Blood Pressure: 161/82 Pulse: 91 Respirations: 15 Pulse Ox (%): 98 Assessment & Plan Physician Review Additional Text: Physical Exam General: Alert, Oriented x2 (self, Tx), Confused HEENT: Normocephalic, sclera anicteric Respiratory: Clear to auscultation bilaterally, Normal air movement Cardiovascular: Regular rate/rhythm, Normal S1 S2 Gastrointestinal: soft, NTND, no rebound Ext: no edema, no tenderness Neurological: Normal speech Problem list: Metabolic Encephalopathy secondary to UTI, cystitis SHILOH Parkinson's Hypothyroidism Dementia History of dysphagia -UA positive, Urine Culture: E.coli, sensitive to rocephin, continue Rocephin -passed swallow screen, tolerating diet -restarted home medications, important to receive her Parkinson's medications -improved, but still fatigued/ general weakness and with confusion. Daughter reports patient still not at baseline -PT evaluated -recommend home PT -elevated Cr this morning - pt reportedly has been urinating - will check bladder scan / PVR to r/o urinary retention/obstruction; obtain renal U/S -repeat Cr tomorrow Dispo: anticipate dc home tomorrow pending stable/improvement of renal function - has home health / will need home PT again (daughter states she was recently discharged) Time Spent Managing Pts Care (In Minutes): 35
[2020-04-27 11:49] VITALS: O2SAT 98
[2020-04-27] MEDS: Pimavanserin Tartrate [Nuplazid] 34 MG Capsule PO SCH (18:16)
--- NOTE | 2020-04-27 20:31 | RAD REPORT ---
EXAM DESCRIPTION: US - Renal Ultrasound-Complete - 04/27/2020 8:20 pm CLINICAL HISTORY: SHILOH, eval hydro / bladder Flank pain COMPARISON: Renal Ultrasound-Complete dated 12/12/2019 FINDINGS: Both kidneys are normal in size, shape and echotexture. The right kidney measures 9.6 x 4.0 x 3.5 cm. No hydronephrosis, focal mass or perinephric fluid. The left kidney measures 8.9 x 4.4 x 4.3 cm.. No hydronephrosis, focal mass or perinephric fluid. The urinary bladder demonstrates no gross abnormality seen. IMPRESSION: Unremarkable renal sonogram.
[2020-04-27] MEDS: DONEPEZIL HCL 5 MG TAB PO SCH (20:50)
[2020-04-27] MEDS: MIRTAZAPINE 15 MG TAB PO SCH (20:50)
[2020-04-28] MEDS: LEVOTHYROXINE SOD 0.025 MG TAB PO SCH (05:32)
[2020-04-28 06:22] LABS: Magnesium 2.3 mg/dL (1.8-2.4); Potassium 3.8 mmol/L (3.5-5.1)
[2020-04-28] MEDS: ENSURE ENLIVE 237 ML CAN PO SCH (09:00)
[2020-04-28] MEDS: VITAMIN D 1000 UNIT TAB PO SCH (09:41)
[2020-04-28] MEDS: CARBIDOPA/LEVODOPA 25/100 TAB PO SCH ×2 (09:41→14:26)
[2020-04-28] MEDS: MEMANTINE HCL 10 MG TABLET PO SCH (09:42)
[2020-04-28] MEDS: ENOXAPARIN 40 MG/0.4 ML SQ SCH (09:42)
[2020-04-28] MEDS: CEFTRIAXONE/SWI 1gm 1 GM/10 ML SYR IV SCH (09:42)
[2020-04-28] MEDS ORDERED: POTASSIUM 25 MEQ EFFERV TAB PO ONE (10:40)
[2020-04-28 12:02] VITALS: BP 102/67; TEMP 97.3
--- NOTE | 2020-04-28 13:23 | P.DS ---
Admission Date: 04/24/20 Discharge Date: 04/28/20 Disposition: DC HOME/HOME HEALTH CARE Discharge Condition: GOOD Reason for Admission: Metabolic encephalopathy 2/2 UTI Procedures: CT Head (04/23): No acute intracranial abnormality is seen. If patient's symptoms persist MRI of the brain would be recommended. Urine Cx (04/23): E. coli Renal U/S (04/27): Unremarkable renal sonogram. Problem list: Metabolic Encephalopathy secondary to UTI, cystitis SHILOH mild urinary retention Parkinson's Hypothyroidism Dementia History of dysphagia Brief History of Present Illness: 84yo F, PMH: Parkinson's, dementia, hypothyroidism presented to ED for altered mental status due to UTI. Patient lives at home with her daughter and son-in-law, has home health, physical therapy. Patient was found to be unresponsive to verbal stimulus by family when trying to administer her daily medications and 911 was called. Upon arrival to the emergency department patient was extremely lethargic only responsive to tactile stimulus, patient was worked up in the emergency department, labs essentially unremarkable, urinalysis significant for 1+ leukocytes. Urine microscopic analysis pending with urine culture. Patient with admission in November of last year for urosepsis with pain sensitive E. coli on the culture. Vital signs stable, LP was performed in the emergency department and only shows mildly elevated total protein. Patient does not appear septic, vital signs within normal limits. When I saw the patient iIn the ER she was awake, alert, mildly agitated. Patient was oriented times 1-2, family reports that her baseline status is that she converses with them well but is sometimes unaware of the date and other details. Mental status does seem to be improving but is not back at baseline, ED provider wishes to admit under observation for further evaluation and management. Hospital Course: She slowly improved over the course of her hospitalization. Workup notable for E.coli UTI. She was treated with IV Rocephin and transitioned to PO antibiotics on discharge. Initially, she missed a day of her sinemet due to altered mental status / lethargy. A Enriquez catheter was placed due to her lethargy on presentation and removed the day prior to discharge. She had an acute rise in her serum creatinine. There was some concern for urinary retention since patient missed a few doses of Sinement and is recovering from a UTI, so a PVR was checked, revealing 166ml in bladder. A Enriquez was re-inserted with ~100ml of urine output. This was discussed with the patient's daughter. Possibilities were discussed - removing enriquez for another trial prior to discharge vs discharge home with enriquez catheter. Daughter decided to go home with enriquez since the patient was doing much better and would like continue to do better at home. This was briefly discussed with Dr. Adrian (Urology), who recommended patient follow up with him later this week. The patient's daughter, Zakiya, expressed understanding and agreement with the plan. Enriquez catheter care teaching was reviewed by nursing staff prior to discharge. Patient is also recommended to follow up with PCP in 3-5 days as well. Vital Signs/Physical Exam: Physical Exam General: Alert, Oriented x2 (self, state), confused HEENT: Normocephalic, sclera anicteric Respiratory: Clear to auscultation bilaterally, Normal air movement Cardiovascular: Regular rate/rhythm, Normal S1 S2 Gastrointestinal: soft, NTND, no rebound Ext: no edema, no tenderness Neurological: Normal speech, moves all extremities Temp Pulse Resp BP Pulse Ox 97.3 F 83 16 102/67 95 04/28/20 11:59 04/28/20 11:59 04/28/20 11:59 04/28/20 11:59 04/28/20 11:59 Laboratory Data at Discharge: WBC 6.50 K/uL (4.3-10.9) D 04/27/20 10:11 Hgb 12.8 g/dL (12.0-15.0) 04/27/20 10:11 Hct 39.4 % (36.0-45.0) 04/27/20 10:11 Plt Count 155 K/uL (152-406) 04/27/20 10:11 PT 11.3 SECONDS (9.5-12.5) 04/23/20 17:44 INR 0.98 04/23/20 17:44 APTT 26.5 SECONDS (24.3-36.9) 04/23/20 17:44 Sodium Cancelled 04/28/20 Unknown Potassium Cancelled 04/28/20 Unknown BUN Cancelled 04/28/20 Unknown Creatinine Cancelled 04/28/20 Unknown Glucose Cancelled 04/28/20 Unknown Magnesium 2.3 mg/dL (1.8-2.4) 04/28/20 05:54 Total Bilirubin 0.4 mg/dL (0.2-1.0) 04/24/20 05:09 AST 15 U/L (15-37) 04/24/20 05:09 ALT 11 U/L (12-78) L 04/24/20 05:09 Alkaline Phosphatase 48 U/L (45-117) 04/24/20 05:09 Home Medications: Carbidopa/Levodopa [Carbidopa-Levo 25-100 mg Odt] 2 tab PO SEECOM 12/13/19 Carbidopa/Levodopa [Carbidopa-Levo 25-100 mg Odt] 2 tab PO SEECOM 12/13/19 Donepezil HCl 1 tab PO BEDTIME 12/13/19 Levothyroxine Sodium 1 tab PO DAILY 12/13/19 Memantine HCl [Namenda*] 1 tab PO BID 12/13/19 Mirtazapine [Remeron*] 1 tab PO BEDTIME 12/13/19 Cholecalciferol (Vitamin D3) [Vitamin D 1000 Iu Tab*] 3,000 units PO DAILY 04/24/20 Multivitamin 1 tab PO DAILY 04/24/20 Pimavanserin Tartrate [Nuplazid] 34 mg PO SEECOM 04/24/20 Cefpodoxime Proxetil [Vantin] 200 mg PO BID 5 Days #10 tablet 04/28/20 New Medications: Cefpodoxime Proxetil [Vantin] 200 mg PO BID 5 Days #10 tablet Physician Discharge Instructions: You were found to have a urinary tract infection and responded well to antibiotics. You are discharged home with antibiotics and a enriquez catheter. You had some mild urine retention during your hospitalization which may be due to the urinary infection and/or possibly your parkinson's, since you missed ~1 day of your medications. Please follow up with your PCP in 3-5 days. Please follow up with Dr. Adrian, urology, later this week regarding your enriquez catheter. Diet: AHA Activity: Ad veronica Followup: NONE,NONE [Primary Care Provider] - Lars Adrian [ACTIVE - CAN ADMIT] - Time spent managing pt's care (in minutes): 40
[2020-04-29] MEDS ORDERED: ENOXAPARIN 30 MG/0.3 ML SQ SCH (09:00)
== END 2020-04-28 15:32 | disposition home health service (06) | DRG 689 ==
LOC: ER 16:50 → ERHOLD 21:02 → 2ND 22:20 → OBSVTOIN 04-24 11:16
PROVIDERS: ADMIT Hospitalist; ATTEND Hospitalist
DX: N39.0 Urinary tract infection, site not specified (principal); G93.41 Metabolic encephalopathy; N17.9 Acute kidney failure, unspecified; G20 Parkinson's disease; F03.90 Unspecified dementia, unspecified severity, without behavioral disturbance, psychotic disturbance, mood disturbance, and anxiety; E03.9 Hypothyroidism, unspecified; B96.20 Unspecified Escherichia coli [E. coli] as the cause of diseases classified elsewhere; R33.9 Retention of urine, unspecified; Z90.710 Acquired absence of both cervix and uterus; Z79.890 Hormone replacement therapy; Z79.899 Other long term (current) drug therapy; Z20.822 Contact with and (suspected) exposure to COVID-19
CPT/HCPCS: 36415; 51702; 62270; 70450; 76770; 80048; 80053; 80076; 80307; 80320; 80329; 81003; 81015; 82945; 82947; 83605; 83735; 84145; 84157; 84439; 84443; 85025; 85610; 85730; 86403; 87040; 87070; 87077; 87086; 87088; 87186; 89050; 93005; 96365; 96366; 96375; 97116; 97161; 97530; 99291; 99292; G0378; J0696; J1650; J2310; J3480; J7030; J7799; U0003